=== PATIENT | female | born 1965 | race Hispanic/Latino ===

== ENCOUNTER 2016-11-20 18:21 | Inpatient (IN) | payer MEDICAID ==
[2016-11-20 20:20] LABS: Basophils % (Auto) 0.6 % (0.0-1.8); Eosinophils % (Auto) 1.2 % (0.0-4.3); Mean Corpuscular HGB Conc 31 % (30-34); Mean Corpuscular Hemoglobin 29 pg (28-32); Mean Corpuscular Volume 93 fl (79-97); Platelet Count 207 K/mm3 (140-440); Red Blood Count 5.59 M/mm3 (3.65-5.03); Red Cell Distribution Width 15.8 % (13.2-15.2); White Blood Count 10.9 K/mm3 (4.5-11.0)
[2016-11-20 20:24] LABS: Hematocrit 52.2 % (30.3-42.9); Hemoglobin 16.2 gm/dl (10.1-14.3)
[2016-11-20] MEDS ORDERED: ATROVENT IH ONE (20:28)
[2016-11-20] MEDS ORDERED: PROVENTIL IH ONE (20:28)
[2016-11-20] MEDS ORDERED: MAGNESIUM SULFATE 2GM/50ML 2 GM/50 ML BAG IV ONE (20:28)
[2016-11-20 20:42] LABS: Anion Gap 16 mmol/L; BUN/Creatinine Ratio 24.28; Blood Urea Nitrogen 17 mg/dL (7-17); Calcium 8.7 mg/dL (8.4-10.2); Carbon Dioxide 29 mmol/L (22-30); Chloride 99.7 mmol/L (98-107); Glucose 105 mg/dL (65-100); Potassium 4.8 mmol/L (3.6-5.0); Sodium 140 mmol/L (137-145)
--- NOTE | 2016-11-20 20:44 | Emergency Department Report ---
HPI - General Chief Complaint: Dyspnea/Respdistress Time Seen by Provider: 11/20/16 20:11 - HPI HPI: This is a 51-year-old female with the past medical history of COPD, hypertension, depression and morbid obesity who presents to the emergency department by EMS from her primary care doctor's office, Dr. Stone, with a complaint of shortness of breath. Patient says that the shortness of breath has been going on for the past 2 weeks. The patient says that she used to be on oxygen for her COPD but has not been on any for 6 months as she says she has not needed it. When EMS found her in the office she was found to have a oxygen saturation of 60-70%. She also complains of swelling to the bilateral lower extremities. She did not take anything for symptoms prior to presentation. She was placed on supplemental oxygen. Patient also complains of random joint pains and says that she thinks she is recently diagnosed with lupus. No recent travel or sick contacts at home. ED Past Medical Hx - Past Medical History Hx Hypertension: Yes Hx Congestive Heart Failure: No Hx Diabetes: No Hx Pulmonary Embolism: No Hx Renal Disease: No Hx Arthritis: Yes (LEFT KNEE) Hx Kidney Stones: No Hx Psychiatric Treatment: Yes (MAJOR DEPRESSIVE DISORDER) Hx Asthma: No Hx COPD: Yes Hx Tuberculosis: No Hx HIV: No Additional medical history: MORBID OBESITY - Surgical History Additional Surgical History: HYSTERECTOMY - Social History Smoking Status: Former Smoker - Medications Home Medications: Home Medications Medication Instructions Recorded Confirmed Last Taken Type Albuterol Sulfate [Ventolin HFA] 2 puff IH Q4H PRN #1 hfa.aer.ad 12/03/15 Unknown Rx Nystatin [Nystop Powder] 1 applic TP BID #7 powder 12/03/15 05/23/16 Unknown Rx Furosemide [Lasix TAB] 40 mg PO QDAY #7 tablet 12/10/15 05/23/16 Unknown Rx HYDROcodone/APAP 5-325 [[place] 1 each PO Q6HR PRN 05/23/16 05/23/16 Unknown History 5/325] Lurasidone HCl [Latuda] 40 mg PO QDAY 05/23/16 05/23/16 Unknown History Sulfamethoxazole/Trimethoprim 1 each PO BID 05/23/16 05/23/16 Unknown History [Bactrim DS TAB] Vilazodone Hydrochloride [Viibryd] 20 mg PO QDAY 05/23/16 05/23/16 Unknown History Prednisone [predniSONE 10 mg 10 mg PO .TAPER #1 tab.ds.pk 05/27/16 Unknown Rx (6-Day Pack, 21 Tabs)] Sulfamethoxazole/Trimethoprim 1 each PO BID #14 tablet 05/27/16 Unknown Rx [Bactrim DS TAB] ED Review of Systems ROS: Stated complaint: JAME Other details as noted in HPI Comment: All other systems reviewed and negative Constitutional: denies: chills, fever Eyes: denies: eye pain, eye discharge, vision change ENT: denies: ear pain, throat pain Respiratory: shortness of breath, wheezing Cardiovascular: edema. denies: chest pain Gastrointestinal: denies: abdominal pain, nausea, diarrhea Genitourinary: denies: urgency, dysuria, discharge Musculoskeletal: denies: back pain, joint swelling, arthralgia Skin: denies: rash, lesions Neurological: denies: headache, weakness, paresthesias Physical Exam - Physical Exam Vital Signs: Vital Signs 11/20/16 19:54 Temperature 98.7 F Pulse Rate 94 H Respiratory 20 Rate Blood Pressure 145/100 [Left] O2 Sat by Pulse 91 Oximetry Physical Exam: GENERAL: The patient is well-developed well-nourished. HEENT: Normocephalic. Atraumatic. Extraocular motions are intact. Patient has moist mucous membranes. Pupils equal reactive to light bilaterally. NECK: Supple. Trachea is midline. CHEST/LUNGS: Moderate to severe wheezing throughout the chest. There is a dry cough heard with coughing fits. There is some tachypnea. There is mild respiratory distress noted. HEART/CARDIOVASCULAR: Regular. There is no tachycardia. There is no gallop rub or murmur. ABDOMEN: Abdomen is soft, nontender. Patient has normal bowel sounds. There is no abdominal distention. Morbidly obese habitus. SKIN: Skin is warm and dry. Unable to appreciate lower extremity edema secondary to patient's habitus but there is no pitting. NEURO: The patient is awake, alert, and oriented. The patient is cooperative. The patient has no focal neurologic deficits. The patient has normal speech. MUSCULOSKELETAL: There is no tenderness or deformity. There is no limitation range of motion. There is no evidence of acute injury. ED Course Vital Signs 11/20/16 19:54 Temperature 98.7 F Pulse Rate 94 H Respiratory 20 Rate Blood Pressure 145/100 [Left] O2 Sat by Pulse 91 Oximetry - ABG Interpretation Ph: 7.248 PCO2: 81 PO2: 72 Bicarbonate: 35 Interpretation: respiratory acidosis, other (hypoxemia) ED Medical Decision Making - Lab Data Result diagrams: 11/20/16 20:05 11/20/16 20:05 - EKG Data EKG shows normal: sinus rhythm, axis (LAD), intervals, QRS complexes (left posterior fascicular block), ST-T waves Rate: normal - EKG Data When compared to previous EKG there are: no significant change Interpretation: unchanged when compared t (05/23/16) - Radiology Data Radiology results: report reviewed, image reviewed interpreted by me: Chest x-ray shows some mild cardiomegaly and some pulmonary vascular congestion. No obvious pneumonia. No pneumothorax. CT angiography of the chest does not show any obvious central pulmonary embolism or any other acute chest finding within the limits of this examination. The examination was listed as compromised by artifact related to suboptimal photon penetration and soft tissues extending beyond the field of view. - Medical Decision Making 51-year-old female with history of COPD, who is been noncompliant with her oxygen, presents to the ER after a two-week history of shortness of breath and some hypoxia in her primary care doctor's office. Patient appears to most likely have a COPD exacerbation but there also appears to be some level of CHF involvement. Patient's arterial blood gas shows hypercapnia as well as some hypoxemia. Patient had some mild respiration distress upon presentation but is doing better with supplemental oxygen and breathing treatments. Patient was given Solu-Medrol, magnesium, Lasix. Patient will now be placed on a BiPAP to blow off some of the carbon dioxide. Patient had a CT angiography due to a slightly elevated and equivocal d-dimer but it did not result in showing any central pulmonary embolism. Patient will be admitted to hospital for further evaluation and treatment is been accepted for admission by the hospitalist, Dr. Cain. - Differential Diagnosis COPD, CHF, GA, PE, pneumonia Critical Care Time: No Critical care attestation.: If time is entered above; I have spent that time in minutes in the direct care of this critically ill patient, excluding procedure time. ED Disposition Clinical Impression: HTN (hypertension), benign, Hypoxia, COPD exacerbation, Difficulty breathing, Hypercapnia, Respiratory acidosis Morbid obesity Qualifiers: Obesity type: unspecified obesity type Qualified Code(s): E66.01 - Morbid ( severe) obesity due to excess calories Disposition: OP ADMITTED IP TO THIS HOSP Is pt being admited?: Yes Condition: Stable Instructions: Hypertension (ED), Chronic Obstructive Pulmonary Disease (ED) Referrals: PRIMARY CARE,MD [Primary Care Provider] - 3-5 Days Time of Disposition: 23:45
[2016-11-20] MEDS ORDERED: ROBITUSSIN AC PO ONE (20:47)
[2016-11-20 21:27] LABS: ISTAT Base Excess 8; ISTAT HCO3 35.4; ISTAT PCO2 81.2 (35-45); ISTAT PH 7.248 (7.35-7.45); ISTAT PO2 72 (80-105); ISTAT SO2 90; ISTAT TCO2 38
--- NOTE | 2016-11-20 21:33 | Admit Criteria Form ---
Admission Criteria Documentation: RESPIRATORY FAILURE GRG Clinical Indications for Admission to Inpatient Care (Place 'X' for any and all applicable criteria): Hospital admission is needed for appropriate care of the patient because of acute respiratory failure or insufficiency as indicated by ANY ONE of the following(1)(2)(3)(4)(5)(6)(7)(8): [ ]I. Mechanical ventilation needed (acute invasive or noninvasive) [X ]II. Severe ventilation deficit as indicated by ANY ONE of the following (9 ) [X ]a) Respiratory acidosis (pH less than 7.32 and partial pressure of carbon dioxide greater than 40 mm Hg (5.3 kPa)) [ ]b) Partial pressure of carbon dioxide greater than 44 mm Hg (5.9 kPa ) (new) [ ]c) Airflow measurements less than 25% of predicted (eg, peak expiratory flow rate less than 100 L/minute) [ ]d) Forced vital capacity less than 15 mL/kg of ideal body weight, or 50% decrease in vital capacity from baseline [ ]III. Noncardiac pulmonary edema not resolving with rapid emergency treatment (8) [ ]IV. Severe respiratory distress as indicated by ANY ONE of the following: [ ]a) Severe tachypnea (respiratory rate greater than 30, greater than 45 for 6-month-old, greater than 60 for ) [ ]b) Severe hypoxemia (partial pressure of oxygen less than 50 mm Hg ( 6.7 kPa) on greater than 50% oxygen or partial pressure of oxygen to FIO2 ratio less than 200) [ ]c) Mental status deterioration from respiratory disease [ ]V. Airway obstruction or inadequate protection [A](10)(11) The original [employer] content created by [employer] has been revised. The portions of the content which have been revised are identified through the use of italic text or in bold, and [email or web address] has neither reviewed nor approved the modified material. All other unmodified content is copyright [employer]. Please see references footnoted in the original [employer] edition 2016 Admission Criteria Met: Yes
[2016-11-20] MEDS ORDERED: MORPHINE IV ONE (21:46)
--- NOTE | 2016-11-20 23:02 | Cat Scan Report ---
FINAL REPORT EXAM: CT ANGIO CHEST HISTORY: SOB, elevated dimer TECHNIQUE: CT imaging obtained through the chest following intravenous administration of 100 cc Omnipaque 350 contrast. Transaxial, Coronal and sagittal reformats are provided. PRIORS: None. FINDINGS: Examination is compromised by artifact related to suboptimal photon penetration and soft tissues extending beyond the field of view. Cardiomegaly. Main pulmonary artery is within normal limits in caliber. No central pulmonary embolism. Thoracic aorta is normal in course and caliber. No pneumothorax, effusion or focal airspace disease. The central airways are patent. No bronchiectasis. Imaged portion of the upper abdomen is unremarkable. The superficial soft tissues are unremarkable. Old fracture deformities in the right 4th and 5th in left 6th and 7th ribs. No acute bony abnormality or worrisome osseous lesions identified. IMPRESSION: Examination is compromised as above. No central pulmonary embolism or other acute chest finding within limits of the exam.
[2016-11-20] MEDS ORDERED: LASIX IV ONE (23:27)
[2016-11-21 00:31] LABS: ISTAT Base Excess 7; ISTAT HCO3 35.9; ISTAT PCO2 109.7 (35-45); ISTAT PH 7.123 (7.35-7.45); ISTAT PO2 57 (80-105); ISTAT SO2 76; ISTAT TCO2 39
[2016-11-21] MEDS ORDERED: ARTIFICIAL TEARS OPHTH OINT OU PRN ×2 (01:11→01:12)
[2016-11-21] MEDS ORDERED: ALUM-MAG HYDROX-SIMETH 200-200-20MG/5ML PO PRN (01:11)
[2016-11-21] MEDS ORDERED: TYLENOL PR PRN (01:11)
[2016-11-21] MEDS ORDERED: VASELINE LIP THERAPY TP PRN ×2 (01:11→01:12)
[2016-11-21] MEDS ORDERED: DULCOLAX PR PRN (01:11)
[2016-11-21] MEDS ORDERED: TYLENOL PO PRN (01:11)
[2016-11-21] MEDS ORDERED: ZOFRAN IV PRN (01:11)
[2016-11-21] MEDS ORDERED: MILK OF MAGNESIA PO PRN (01:11)
--- NOTE | 2016-11-21 01:27 | History and Physical Report ---
History of Present Illness Date of examination: 11/21/16 History of present illness: 51-year-old woman with a history of COPD, depression, anxiety came to the emergency room with shortness of breath. She was given diagnosis of COPD, given steroids and ABG shows a CO2 of 81. The patient was started on BiPAP. When I saw the patient she was minimally responsive, repeat ABG was requested which shows a CO2 of 110. Patient was then intubated. Other review of system is unobtainable PAST SURGICAL HISTORY: None SOCIAL HISTORY: Unknown FAMILY HISTORY: Unknown Medications and Allergies Allergies Allergy/AdvReac Type Severity Reaction Status Date / Time No Known Allergies Allergy Unverified 05/23/15 10:09 Home Medications Medication Instructions Recorded Confirmed Last Taken Type Albuterol Sulfate [Ventolin HFA] 2 puff IH Q4H PRN #1 hfa.aer.ad 12/03/15 Unknown Rx Nystatin [Nystop Powder] 1 applic TP BID #7 powder 12/03/15 05/23/16 Unknown Rx Furosemide [Lasix TAB] 40 mg PO QDAY #7 tablet 12/10/15 05/23/16 Unknown Rx HYDROcodone/APAP 5-325 [[place] 1 each PO Q6HR PRN 05/23/16 05/23/16 Unknown History 5/325] Lurasidone HCl [Latuda] 40 mg PO QDAY 05/23/16 05/23/16 Unknown History Sulfamethoxazole/Trimethoprim 1 each PO BID 05/23/16 05/23/16 Unknown History [Bactrim DS TAB] Vilazodone Hydrochloride [Viibryd] 20 mg PO QDAY 05/23/16 05/23/16 Unknown History Prednisone [predniSONE 10 mg 10 mg PO .TAPER #1 tab.ds.pk 05/27/16 Unknown Rx (6-Day Pack, 21 Tabs)] Sulfamethoxazole/Trimethoprim 1 each PO BID #14 tablet 05/27/16 Unknown Rx [Bactrim DS TAB] Active Meds: Active Medications Hydrophilic Ointment (Vaseline Lip Therapy) 1 applic TP Q2HR PRN PRN Reason: Dry Lips Propofol (Diprivan 10 Mg/Ml) 1,000 mg in 100 mls @ 4.763 mls/hr IV TITR DOMITILA; 5 MCG/KG/MIN PRN Reason: Protocol Multi-Ingred Cream/Lotion/Oil/Oint (Artificial Tears Ophth Oint) 1 applic OU Q4HR PRN PRN Reason: Dry Eye(s) Exam - Physical Exam Narrative exam: Gen. appearance: Patient lying in bed, no apparent distress HEENT: Normocephalic, atraumatic, pupils equally round and reactive to light, extraocular movement intact, and no sclericterus,. No JVD or thyromegaly or nodule,neck supple, no carotid bruit ,mucous membranes moist, no exudate or erythema Heart: S1, S2, regular rate and rhythm Lungs: wheezing bilaterally, breathing comfortable Abdomen: Positive bowel sounds, nontender, nondistended, no organomegaly Extremity: No edema, cyanosis, clubbing Skin: No rash, nodules, warm, dry Neuro:lethargic - Constitutional Vitals: Temp Pulse Resp BP Pulse Ox 98.7 F 106 H 0 L 167/109 99 11/20/16 19:54 11/21/16 00:50 11/21/16 00:50 11/21/16 00:50 11/21/16 00:50 Results - Labs CBC & Chem 7: 11/20/16 20:05 11/20/16 20:05 Labs: Abnormal lab results 11/20/16 11/20/16 11/20/16 Range/Units 20:05 20:05 20:05 RBC 5.59 H (3.65-5.03) M/mm3 Hgb 16.2 H (10.1-14.3) gm/dl Hct 52.2 H (30.3-42.9) % RDW 15.8 H (13.2-15.2) % [place] % (Auto) 12.7 H (0.0-7.3) % [place] # 1.4 H (0.0-0.8) K/mm3 Seg Neutrophils % 72.1 H (40.0-70.0) % Seg Neutrophils # 7.9 H (1.8-7.7) K/mm3 D-Dimer (0-234) ng/mlDDU POC ABG pH (7.35-7.45) POC ABG pCO2 (35-45) POC ABG pO2 (80-105) Glucose 105 H (65-100) mg/dL NT-Pro-B Natriuret Pep 1872 H (0-900) pg/mL 11/20/16 11/20/16 11/21/16 Range/Units 21:00 21:19 00:19 RBC (3.65-5.03) M/mm3 Hgb (10.1-14.3) gm/dl Hct (30.3-42.9) % RDW (13.2-15.2) % [place] % (Auto) (0.0-7.3) % [place] # (0.0-0.8) K/mm3 Seg Neutrophils % (40.0-70.0) % Seg Neutrophils # (1.8-7.7) K/mm3 D-Dimer 390.70 H (0-234) ng/mlDDU POC ABG pH 7.248 L 7.123 L (7.35-7.45) POC ABG pCO2 81.2 H 109.7 H (35-45) POC ABG pO2 72 L 57 L (80-105) Glucose (65-100) mg/dL NT-Pro-B Natriuret Pep (0-900) pg/mL - Imaging and Cardiology EKG: image reviewed Chest x-ray: image reviewed CT scan - chest: report reviewed Assessment and Plan Acute respiratory failure COPD exacerbation Depression Anxiety Admit to medicine start Versed drip for sedation Consult critical care, start high-dose IV steroids, nebulizer treatments Check cardiac enzymes, DVT prophylaxis
[2016-11-21] MEDS: DIPRIVAN 10 MG/ML 1,000 MG/100 ML BOTTLE IV SCH ×4 (01:40→22:57)
[2016-11-21] MEDS ORDERED: NACL 0.9% 500 ML IV SCH (02:00)
[2016-11-21] MEDS ORDERED: VERSED/NS 100MG/100ML 100 MG/100 ML BAG IV SCH (02:00)
--- NOTE | 2016-11-21 02:27 | XRay Report ---
FINAL REPORT PROCEDURE: XR CHEST 1V AP TECHNIQUE: Chest radiograph anteroposterior view. CPT 37621 HISTORY: post-intubation COMPARISON: No prior studies are available for comparison. FINDINGS: Heart: Heart is enlarged Mediastinum/Vessels: There is pulmonary vascular congestion.. Lungs/Pleural space: There is suboptimal inspiration. There is bilateral pulmonary edema.. Bony thorax: No acute osseous abnormality. Life support devices: ET tube is in the mid trachea. Tip of the NG tube cannot be seen.. IMPRESSION: Heart is enlarged There is pulmonary vascular congestion.. There is suboptimal inspiration. There is bilateral pulmonary edema.. ET tube is in the mid trachea. Tip of the NG tube cannot be seen. .
[2016-11-21] MEDS: DUONEB 0.5 MG-3 MG/3 ML SOLN IH SCH ×4 (03:00→21:17)
[2016-11-21 03:04] LABS: ISTAT Base Excess 6; ISTAT HCO3 32.4; ISTAT PCO2 67.4 (35-45); ISTAT PO2 67 (80-105); ISTAT SO2 90; ISTAT TCO2 34
[2016-11-21] MEDS ORDERED: AMIDATE IV ONE (08:47)
[2016-11-21] MEDS ORDERED: VERSED IV ONE (08:47)
[2016-11-21] MEDS ORDERED: ZEMURON IV ONE (08:47)
--- NOTE | 2016-11-21 09:05 | XRay Report ---
CHEST 2 VIEWS INDICATION: Shortness of breath. COMPARISON: 05/23/2016 FINDINGS: Frontal and lateral chest radiographs, 3 images, technically limited due to patient's body habitus, though may again suggest mild cardiomegaly. Asymmetric right lung hazy air space opacities appear to have cleared. Mild pulmonary vascular redistribution/bronchovascular prominence centrally may though be present. Pulmonary arterial hypertension not entirely excluded. No large pleural effusion suspected. Left hemidiaphragm however not clearly visualized. Mild thoracic spondylosis. CONCLUSION: Mild cardiomegaly again suspected on this technically limited exam with interval improvement in previously seen asymmetric right lung hazy air space opacities, as described. Please correlate. Thank you for the opportunity to participate in this patient's care.
[2016-11-21 09:38] LABS: Creatine Kinase MB 6.6 ng/mL (0.0-4.0)
[2016-11-21 09:40] LABS: Creatine Kinase 523 units/L (30-135)
[2016-11-21] MEDS: PEPCID IV SCH ×2 (11:00→22:59)
[2016-11-21] MEDS: LOVENOX SUB-Q SCH (11:00)
[2016-11-21] MEDS ORDERED: LASIX IV ONE (11:00)
--- NOTE | 2016-11-21 11:25 | Consultation ---
History of Present Illness Consult date: 11/21/16 Requesting physician: RICARDO NICOLE Reason for consult: COPD, other (hypercapnic respiratory failure) History of present illness: 51 y/o female, morbidly obese, admitted with hypercapnic respiratory failure that failed bipap therapy and required mechanical ventilation and intubation. Currently she is intubated and sedated and has no family at bedside. Past History Past Medical History: other (unable to obtaine) Past Surgical History: Other (unable to obtain) Social history: other (unable to obtain) Family history: other (unable to obtain) Medications and Allergies Allergies Allergy/AdvReac Type Severity Reaction Status Date / Time No Known Allergies Allergy Unverified 05/23/15 10:09 Home Medications Medication Instructions Recorded Confirmed Last Taken Type Albuterol Sulfate [Ventolin HFA] 2 puff IH Q4H PRN #1 hfa.aer.ad 12/03/15 Unknown Rx Nystatin [Nystop Powder] 1 applic TP BID #7 powder 12/03/15 05/23/16 Unknown Rx Furosemide [Lasix TAB] 40 mg PO QDAY #7 tablet 12/10/15 05/23/16 Unknown Rx HYDROcodone/APAP 5-325 [[place] 1 each PO Q6HR PRN 05/23/16 05/23/16 Unknown History 5/325] Lurasidone HCl [Latuda] 40 mg PO QDAY 05/23/16 05/23/16 Unknown History Sulfamethoxazole/Trimethoprim 1 each PO BID 05/23/16 05/23/16 Unknown History [Bactrim DS TAB] Vilazodone Hydrochloride [Viibryd] 20 mg PO QDAY 05/23/16 05/23/16 Unknown History Prednisone [predniSONE 10 mg 10 mg PO .TAPER #1 tab.ds.pk 05/27/16 Unknown Rx (6-Day Pack, 21 Tabs)] Sulfamethoxazole/Trimethoprim 1 each PO BID #14 tablet 05/27/16 Unknown Rx [Bactrim DS TAB] Active Meds: Active Medications Acetaminophen (Tylenol) 650 mg ID Q6H PRN PRN Reason: Pain MILD(1-3)/Fever >100.5/BONE Acetaminophen (Tylenol) 650 mg PO Q6H PRN PRN Reason: Pain Al Hydrox/Mg Hydrox/Simethicone (Alum-Mag Hydrox-Simeth 214-212-60xx/5ml) 30 ml PO Q4H PRN PRN Reason: Indigestion Albuterol/Ipratropium (Duoneb 0.5 Mg-3 Mg/3 Ml Soln) 1 ampul IH Q6HRT [facility] Last Admin: 11/21/16 03:00 Dose: 1 ampul Bisacodyl (Dulcolax) 10 mg ID QDAY PRN PRN Reason: constipation unrelieved by MOM Enoxaparin Sodium (Lovenox) 40 mg SUB-Q QDAY DOMITILA Famotidine (Pepcid) 20 mg IV BID DOMITILA Fentanyl (Sublimaze) 50 mcg IV Q2H PRN PRN Reason: AGITATION Hydrophilic Ointment (Vaseline Lip Therapy) 1 applic TP Q2HR PRN PRN Reason: Dry Lips Propofol (Diprivan 10 Mg/Ml) 1,000 mg in 100 mls @ 4.763 mls/hr IV TITR DOMITILA; 5 MCG/KG/MIN PRN Reason: Protocol Last Titration: 11/21/16 02:10 Dose: 15 mcg/kg/min, 14.288 mls/hr Magnesium Hydroxide (Milk Of Magnesia) 30 ml PO Q4H PRN PRN Reason: Constipation Methylprednisolone Sodium Succinate (Solu-Medrol) 60 mg IV Q6HR [facility] Multi-Ingred Cream/Lotion/Oil/Oint (Artificial Tears Ophth Oint) 1 applic OU Q4H PRN PRN Reason: Dry Eye(s) Ondansetron HCl (Zofran) 4 mg IV Q8H PRN PRN Reason: N/V unrelieved by Reglan Sodium Chloride (Nacl 0.9% 500 Ml) 1 ml IV DIRECT DOMITILA Review of Systems ROS unobtainable: due to endotracheal tube, due to mental status Physical Examination Vital signs: Vital Signs Temp Pulse Resp BP Pulse Ox 98.7 F 94 H 20 145/100 91 11/20/16 19:54 11/20/16 19:54 11/20/16 19:54 11/20/16 19:54 11/20/16 19:54 General appearance: comatose, other (morbidly obese) ENT: other (orally intubated) Neck: supple, other (large in circumference) Effort: normal Ascultation: Bilateral: wheezes Percussion: Bilateral: not dull Cardiovascular: regular rate and rhythm Gastrointestinal: normoactive bowel sounds Extremities: no edema unable to assess Results - Laboratory Findings CBC and BMP: 11/20/16 20:05 11/20/16 20:05 ABG POC ABG pH 7.290 (7.35-7.45) L 11/21/16 02:41 POC ABG pCO2 67.4 (35-45) H 11/21/16 02:41 POC ABG pO2 67 (80-105) L 11/21/16 02:41 POC ABG HCO3 32.4 11/21/16 02:41 POC ABG Total CO2 34 11/21/16 02:41 POC ABG O2 Sat 90 11/21/16 02:41 PT/INR, D-dimer D-Dimer 390.70 ng/mlDDU (0-234) H 11/20/16 21:00 Abnormal lab findings: Abnormal Labs 11/21/16 11/21/16 02:41 09:00 POC ABG pH 7.290 L POC ABG pCO2 67.4 H POC ABG pO2 67 L Total Creatine Kinase 523 H CK-MB (CK-2) 6.6 H - Diagnostic Findings Chest x-ray: image reviewed (pulmonary edema and cardiomegaly) Assessment and Plan 51 y/o female with known COPD, BRENDA, and noncompliance, admitted with acute on chronic hypercapnic respiratory failure. 1. Repeat ABG at noon 2. Change steroids to 60q6 3. Lasix 40mg IV x1 now given elevated BNP and CXR 4. Pulmicort and brovana BID 5. Will feed patient 6. Wean PEEP for sats >88% and or PaO2 greater than 60 CCT 31 minutes
[2016-11-21] MEDS: SUBLIMAZE IV PRN ×2 (12:00→14:45)
[2016-11-21 13:19] LABS: ISTAT Base Excess 9; ISTAT HCO3 33.8; ISTAT PCO2 57.5 (35-45); ISTAT PH 7.377 (7.35-7.45); ISTAT PO2 62 (80-105); ISTAT SO2 90; ISTAT TCO2 35
[2016-11-21] MEDS: PULMICORT IH SCH ×2 (13:30→21:17)
[2016-11-21] MEDS: BROVANA NEBU IH SCH ×2 (14:13→21:17)
[2016-11-21] MEDS ORDERED: SUBLIMAZE IV ONE (14:20)
[2016-11-21] MEDS ORDERED: PANCREAZE DR 10,500 UNIT FEEDTUBE PRN (14:35)
[2016-11-21] MEDS ORDERED: SIMPLE SYRUP FEEDTUBE PRN ×2 (14:35)
[2016-11-21] MEDS ORDERED: SODIUM BICARBONATE FEEDTUBE PRN (14:35)
[2016-11-21] MEDS: fentaNYL DRIP Premix 2,000 MCG/100 ML BAG IV SCH ×2 (15:00→18:14)
[2016-11-22] MEDS: fentaNYL DRIP Premix 2,000 MCG/100 ML BAG IV SCH ×4 (00:09→19:01)
[2016-11-22] MEDS: DUONEB 0.5 MG-3 MG/3 ML SOLN IH SCH ×4 (03:47→21:19)
[2016-11-22] MEDS: DIPRIVAN 10 MG/ML 1,000 MG/100 ML BOTTLE IV SCH ×5 (04:00→21:01)
[2016-11-22 05:29] LABS: Hemoglobin 15.4 gm/dl (10.1-14.3); Mean Corpuscular HGB Conc 32 % (30-34); Mean Corpuscular Hemoglobin 29 pg (28-32); Mean Corpuscular Volume 91 fl (79-97); Platelet Count 209 K/mm3 (140-440); Red Blood Count 5.28 M/mm3 (3.65-5.03); Red Cell Distribution Width 14.9 % (13.2-15.2); White Blood Count 13.8 K/mm3 (4.5-11.0)
[2016-11-22 05:40] LABS: Blood Urea Nitrogen 19 mg/dL (7-17); Calcium 8.2 mg/dL (8.4-10.2); Carbon Dioxide 30 mmol/L (22-30); Chloride 96.9 mmol/L (98-107); Glucose 151 mg/dL (65-100); Sodium 139 mmol/L (137-145)
[2016-11-22 06:04] LABS: ISTAT Base Excess 12; ISTAT HCO3 36.8; ISTAT PCO2 55.7 (35-45); ISTAT PH 7.428 (7.35-7.45); ISTAT PO2 65 (80-105); ISTAT SO2 92; ISTAT TCO2 38
[2016-11-22 06:06] LABS: Anion Gap 17 mmol/L; Potassium 4.7 mmol/L (3.6-5.0)
[2016-11-22 06:31] LABS: Anisocytosis 1+; Basophils % (Manual) 0 % (0.0-1.8); Blastocytes % (Manual) 0 %; Diff Status Complete; Eosinophils % (Manual) 0 % (0.0-4.3); Platelet Estimate Consistent w Auto
--- NOTE | 2016-11-22 09:19 | XRay Report ---
Portable supine chest: Comparison is made to the prior study of November 21. The heart is big. There is still vascular congestion however the overall findings do appear mildly improved. Endotracheal and nasogastric tubes remain in good positions. Impression: CHF. Probable mild improvement.
[2016-11-22] MEDS: BROVANA NEBU IH SCH ×2 (09:26→21:08)
[2016-11-22] MEDS: PULMICORT IH SCH ×2 (09:26→21:08)
--- NOTE | 2016-11-22 10:41 | XRay Report ---
KUB: 11/22/16 CLINICAL: Feeding tube placement. FINDINGS: A nasogastric tube tip is in the left upper quadrant and is presumably within the stomach. The bowel gas pattern is normal considering body habitus and the portable technique. IMPRESSION: Satisfactory position of the nasogastric tube.
[2016-11-22] MEDS: LOVENOX SUB-Q SCH (11:00)
[2016-11-22] MEDS ORDERED: LASIX IV ONE (13:00)
--- NOTE | 2016-11-22 14:25 | Progress Note ---
Assessment and Plan 51 y/o female with known COPD, BRENDA, and noncompliance, admitted with acute on chronic hypercapnic respiratory failure. 1. Continue steroids at 60q6 2. Lasix 40mg IV x1 now given elevated BNP and CXR 3. Pulmicort and brovana BID 4. Will feed patient 5. Wean PEEP for sats >88% and or PaO2 greater than 60, still not ready for extubation as of yet CCT 31 minutes Subjective Date of service: 11/22/16 Interval history: No acute events. Sedated now on two agents. Awakens with minimal stimulation. Still hypoxic and has significant edema Objective Vital Signs - 12hr 11/22/16 11/22/16 11/22/16 02:30 03:00 03:30 Temperature Pulse Rate 68 66 67 Pulse Rate [ From Monitor] Pulse Rate [ 65 Throughout] Respiratory 26 H 26 H 26 H Rate Respiratory 26 H Rate [ Throughout] Blood Pressure 126/73 113/62 113/62 O2 Sat by Pulse 93 90 91 Oximetry 11/22/16 11/22/16 11/22/16 04:00 04:30 05:00 Temperature 99.1 F Pulse Rate 61 67 63 Pulse Rate [ 61 From Monitor] Pulse Rate [ 63 Throughout] Respiratory 26 H 26 H 26 H Rate Respiratory 26 H Rate [ Throughout] Blood Pressure 111/63 111/63 112/55 O2 Sat by Pulse 95 91 92 Oximetry 11/22/16 11/22/16 11/22/16 05:30 06:00 06:30 Temperature Pulse Rate 65 64 62 Pulse Rate [ From Monitor] Pulse Rate [ Throughout] Respiratory 26 H 26 H 26 H Rate Respiratory Rate [ Throughout] Blood Pressure 112/55 115/64 115/64 O2 Sat by Pulse 95 95 95 Oximetry 11/22/16 11/22/16 11/22/16 07:00 07:30 08:00 Temperature 98.3 F Pulse Rate 60 61 68 Pulse Rate [ 75 From Monitor] Pulse Rate [ Throughout] Respiratory 26 H 26 H 26 H Rate Respiratory Rate [ Throughout] Blood Pressure 113/61 115/64 120/72 O2 Sat by Pulse 94 95 92 Oximetry 11/22/16 11/22/16 11/22/16 08:30 09:00 09:22 Temperature Pulse Rate 88 72 66 Pulse Rate [ From Monitor] Pulse Rate [ Throughout] Respiratory 26 H 26 H Rate Respiratory Rate [ Throughout] Blood Pressure 120/72 128/76 128/76 O2 Sat by Pulse 94 Oximetry 11/22/16 11/22/16 11/22/16 09:26 09:39 12:47 Temperature Pulse Rate 68 Pulse Rate [ From Monitor] Pulse Rate [ 65 62 Throughout] Respiratory Rate Respiratory 26 H 26 H Rate [ Throughout] Blood Pressure 126/73 O2 Sat by Pulse 94 Oximetry Constitutional: comatose, other (morbidly obese) ENT: other (orally intubated) Neck: supple, other (large in circumference) Effort: normal Ascultation: Bilateral: wheezes Percussion: Bilateral: not dull Cardiovascular: regular rate and rhythm Gastrointestinal: normoactive bowel sounds Extremities: no edema Neurologic: unable to assess CBC and BMP: 11/22/16 05:08 11/22/16 05:08 ABG, PT/INR, D-dimer: ABG POC ABG pH 7.428 (7.35-7.45) 11/22/16 05:18 POC ABG pCO2 55.7 (35-45) H 11/22/16 05:18 POC ABG pO2 65 (80-105) L 11/22/16 05:18 POC ABG HCO3 36.8 11/22/16 05:18 POC ABG Total CO2 38 11/22/16 05:18 POC ABG O2 Sat 92 11/22/16 05:18 PT/INR, D-dimer D-Dimer 390.70 ng/mlDDU (0-234) H 11/20/16 21:00 Abnormal lab findings: Abnormal Labs 11/21/16 11/21/16 11/21/16 02:41 09:00 13:10 WBC RBC Hgb Hct Seg Neuts % (Manual) Lymphocytes % (Manual) Seg Neutrophils # Man Lymphocytes # (Manual) Monocytes # (Manual) POC ABG pH 7.290 L POC ABG pCO2 67.4 H 57.5 H POC ABG pO2 67 L 62 L Chloride BUN Creatinine Glucose Calcium Total Creatine Kinase 523 H CK-MB (CK-2) 6.6 H 11/22/16 11/22/16 11/22/16 05:08 05:08 05:18 WBC 13.8 H RBC 5.28 H Hgb 15.4 H Hct 48.0 H Seg Neuts % (Manual) 75.0 H Lymphocytes % (Manual) 4.0 L Seg Neutrophils # Man 10.4 H Lymphocytes # (Manual) 0.6 L Monocytes # (Manual) 1.0 H POC ABG pH POC ABG pCO2 55.7 H POC ABG pO2 65 L Chloride 96.9 L BUN 19 H Creatinine 0.5 L Glucose 151 H Calcium 8.2 L Total Creatine Kinase CK-MB (CK-2)
--- NOTE | 2016-11-22 19:02 | Progress Note ---
Assessment and Plan Assessment and plan: 1. Acute hypoxic hypercapnic respiratory failure Intubated Treating underlying condition 2. COPD exacerbation Requiring intubation On IV corticosteroids high dose, along with inhaled bronchodilators Pulmonary following 3. Morbid obesity and likely BRENDA/OHS May benefit from weight loss and pulmonary follow-up for sleep study/NIPPV 4. Leukocytosis Secondary to corticosteroid use 5. Hyperglycemia Secondary to corticosteroid use 6. DVT prophylaxis The high probability of a clinically significant, sudden or life threatening deterioration of the [] system(s) required my full and direct attention, intervention and personal management. The aggregate critical care time was [32] minutes. This time is in addition to time spent performing reported procedures but includes the following: [x] Data Review and interpretation [x] Patient assessment and monitoring of vital signs [x] Documentation [x] Medication orders and management History Interval history: sedated, intubated, no acute events no family member present Hospitalist Physical - Constitutional Vitals: Temp Pulse Resp BP Pulse Ox 98.3 F 61 26 H 106/56 94 11/22/16 16:00 11/22/16 18:30 11/22/16 18:30 11/22/16 18:30 11/22/16 18:30 General appearance: Present: mild distress, obese (morbidly) - Neck Neck: Present: other (large, short neck). Absent: masses or JVD, carotid bruits - Respiratory Respiratory effort: other (ETT in place, on vent support) Respiratory: bilateral: diminished, wheezing - Cardiovascular Rhythm: regular Heart Sounds: Present: S1 & S2. Absent: systolic murmur - Extremities Extremities: no ischemia Extremity abnormal: edema - Abdominal General gastrointestinal: soft, non-tender, normal bowel sounds, other (abd obese, ptotuberant) - Psychiatric Psychiatric: other (sedated) Results - Labs CBC & Chem 7: 11/22/16 05:08 11/22/16 05:08 Labs: Laboratory Last Values WBC 13.8 K/mm3 (4.5-11.0) H 11/22/16 05:08 RBC 5.28 M/mm3 (3.65-5.03) H 11/22/16 05:08 Hgb 15.4 gm/dl (10.1-14.3) H 11/22/16 05:08 Hct 48.0 % (30.3-42.9) H 11/22/16 05:08 MCV 91 fl (79-97) 11/22/16 05:08 MCH 29 pg (28-32) 11/22/16 05:08 MCHC 32 % (30-34) 11/22/16 05:08 RDW 14.9 % (13.2-15.2) 11/22/16 05:08 Plt Count 209 K/mm3 (140-440) 11/22/16 05:08 Lymph % (Auto) 13.4 % (13.4-35.0) 11/20/16 20:05 [place] % (Auto) 12.7 % (0.0-7.3) H 11/20/16 20:05 Eos % (Auto) 1.2 % (0.0-4.3) 11/20/16 20:05 Baso % (Auto) 0.6 % (0.0-1.8) 11/20/16 20:05 Lymph # 1.5 K/mm3 (1.2-5.4) 11/20/16 20:05 [place] # 1.4 K/mm3 (0.0-0.8) H 11/20/16 20:05 Eos # 0.1 K/mm3 (0.0-0.4) 11/20/16 20:05 Baso # 0.1 K/mm3 (0.0-0.1) 11/20/16 20:05 Add Manual Diff Complete 11/22/16 05:08 Total Counted 100 11/22/16 05:08 Seg Neutrophils % 72.1 % (40.0-70.0) H 11/20/16 20:05 Seg Neuts % (Manual) 75.0 % (40.0-70.0) H 11/22/16 05:08 Band Neutrophils % 14.0 % 11/22/16 05:08 Lymphocytes % (Manual) 4.0 % (13.4-35.0) L 11/22/16 05:08 Reactive Lymphs % (Man) 0 % 11/22/16 05:08 Monocytes % (Manual) 7.0 % (0.0-7.3) 11/22/16 05:08 Eosinophils % (Manual) 0 % (0.0-4.3) 11/22/16 05:08 Basophils % (Manual) 0 % (0.0-1.8) 11/22/16 05:08 Metamyelocytes % 0 % 11/22/16 05:08 Myelocytes % 0 % 11/22/16 05:08 Promyelocytes % 0 % 11/22/16 05:08 Blast Cells % 0 % 11/22/16 05:08 Nucleated RBC % Not Reportable 11/22/16 05:08 Seg Neutrophils # 7.9 K/mm3 (1.8-7.7) H 11/20/16 20:05 Seg Neutrophils # Man 10.4 K/mm3 (1.8-7.7) H 11/22/16 05:08 Band Neutrophils # 1.9 K/mm3 11/22/16 05:08 Lymphocytes # (Manual) 0.6 K/mm3 (1.2-5.4) L 11/22/16 05:08 Abs React Lymphs (Man) 0.0 K/mm3 11/22/16 05:08 Monocytes # (Manual) 1.0 K/mm3 (0.0-0.8) H 11/22/16 05:08 Eosinophils # (Manual) 0.0 K/mm3 (0.0-0.4) 11/22/16 05:08 Basophils # (Manual) 0.0 K/mm3 (0.0-0.1) 11/22/16 05:08 Metamyelocytes # 0.0 K/mm3 11/22/16 05:08 Myelocytes # 0.0 K/mm3 11/22/16 05:08 Promyelocytes # 0.0 K/mm3 11/22/16 05:08 Blast Cells # 0.0 K/mm3 11/22/16 05:08 WBC Morphology Not Reportable 11/22/16 05:08 Hypersegmented Neuts Not Reportable 11/22/16 05:08 Hyposegmented Neuts Not Reportable 11/22/16 05:08 Hypogranular Neuts Not Reportable 11/22/16 05:08 Smudge Cells Not Reportable 11/22/16 05:08 Toxic Granulation Not Reportable 11/22/16 05:08 Toxic Vacuolation Not Reportable 11/22/16 05:08 Dohle Bodies Not Reportable 11/22/16 05:08 Pelger-Huet Anomaly Not Reportable 11/22/16 05:08 Abigail Rods Not Reportable 11/22/16 05:08 Platelet Estimate Consistent w auto 11/22/16 05:08 Clumped Platelets Not Reportable 11/22/16 05:08 Plt Clumps, EDTA Not Reportable 11/22/16 05:08 Large Platelets Not Reportable 11/22/16 05:08 Giant Platelets Not Reportable 11/22/16 05:08 Platelet Satelliting Not Reportable 11/22/16 05:08 Plt Morphology Comment Not Reportable 11/22/16 05:08 RBC Morphology Not Reportable 11/22/16 05:08 Dimorphic RBCs Not Reportable 11/22/16 05:08 Polychromasia Not Reportable 11/22/16 05:08 Hypochromasia Not Reportable 11/22/16 05:08 Poikilocytosis Not Reportable 11/22/16 05:08 Anisocytosis 1+ 11/22/16 05:08 Microcytosis Not Reportable 11/22/16 05:08 Macrocytosis Not Reportable 11/22/16 05:08 Spherocytes Not Reportable 11/22/16 05:08 Pappenheimer Bodies Not Reportable 11/22/16 05:08 Sickle Cells Not Reportable 11/22/16 05:08 Target Cells Not Reportable 11/22/16 05:08 Tear Drop Cells Not Reportable 11/22/16 05:08 Ovalocytes Not Reportable 11/22/16 05:08 Helmet Cells Not Reportable 11/22/16 05:08 [place] Bodies Not Reportable 11/22/16 05:08 [place] Rings Not Reportable 11/22/16 05:08 Rey Cells Not Reportable 11/22/16 05:08 Bite Cells Not Reportable 11/22/16 05:08 Crenated Cell Not Reportable 11/22/16 05:08 Elliptocytes Not Reportable 11/22/16 05:08 Acanthocytes (Spur) Not Reportable 11/22/16 05:08 Rouleaux Not Reportable 11/22/16 05:08 Hemoglobin C Crystals Not Reportable 11/22/16 05:08 Schistocytes Not Reportable 11/22/16 05:08 Malaria parasites Not Reportable 11/22/16 05:08 [place] Bodies Not Reportable 11/22/16 05:08 Hem Pathologist Commnt No 11/22/16 05:08 D-Dimer 390.70 ng/mlDDU (0-234) H 11/20/16 21:00 POC ABG pH 7.428 (7.35-7.45) 11/22/16 05:18 POC ABG pCO2 55.7 (35-45) H 11/22/16 05:18 POC ABG pO2 65 (80-105) L 11/22/16 05:18 POC ABG HCO3 36.8 11/22/16 05:18 POC ABG Total CO2 38 11/22/16 05:18 POC ABG O2 Sat 92 11/22/16 05:18 POC ABG Base Excess 12 11/22/16 05:18 FiO2 45 % 11/22/16 05:18 Sodium 139 mmol/L (137-145) 11/22/16 05:08 Potassium 4.7 mmol/L (3.6-5.0) 11/22/16 05:08 Chloride 96.9 mmol/L (98-107) L 11/22/16 05:08 Carbon Dioxide 30 mmol/L (22-30) 11/22/16 05:08 Anion Gap 17 mmol/L 11/22/16 05:08 BUN 19 mg/dL (7-17) H 11/22/16 05:08 Creatinine 0.5 mg/dL (0.7-1.2) L 11/22/16 05:08 Estimated GFR > 60 ml/min 11/22/16 05:08 BUN/Creatinine Ratio 38.00 % 11/22/16 05:08 Glucose 151 mg/dL (65-100) H 11/22/16 05:08 Calcium 8.2 mg/dL (8.4-10.2) L 11/22/16 05:08 Magnesium 2.2 mg/dL (1.7-2.3) 11/20/16 20:05 Total Creatine Kinase 523 units/L (30-135) H 11/21/16 09:00 CK-MB (CK-2) 6.6 ng/mL (0.0-4.0) H 11/21/16 09:00 CK-MB (CK-2) Rel Index 1.2 (0-4) 11/21/16 09:00 Troponin T < 0.010 ng/mL (0.00-0.029) 11/21/16 09:00 NT-Pro-B Natriuret Pep 1872 pg/mL (0-900) H 11/20/16 20:05
[2016-11-22] MEDS: PEPCID PO SCH (21:03)
[2016-11-23] MEDS: DIPRIVAN 10 MG/ML 1,000 MG/100 ML BOTTLE IV SCH ×4 (00:25→20:59)
[2016-11-23] MEDS: fentaNYL DRIP Premix 2,000 MCG/100 ML BAG IV SCH ×4 (00:26→22:00)
[2016-11-23] MEDS: DUONEB 0.5 MG-3 MG/3 ML SOLN IH SCH ×4 (02:24→20:01)
[2016-11-23 05:23] LABS: ISTAT Base Excess 13; ISTAT HCO3 36.7; ISTAT PCO2 49.9 (35-45); ISTAT PH 7.475 (7.35-7.45); ISTAT PO2 72 (80-105); ISTAT SO2 95; ISTAT TCO2 38
--- NOTE | 2016-11-23 07:21 | XRay Report ---
AP CHEST: HISTORY: Followup respiratory failure Cardiomegaly, pulmonary venous congestion and small left pleural effusion are stable. Segmental atelectasis is noted in the left lung. The right lung is generally clear. Lines and tubes remain in good position. IMPRESSION: No significant change in CHF since yesterday's exam.
[2016-11-23] MEDS: BROVANA NEBU IH SCH ×2 (08:25→20:19)
[2016-11-23] MEDS: PULMICORT IH SCH ×2 (08:25→20:01)
[2016-11-23] MEDS: PEPCID PO SCH ×2 (10:00→22:36)
[2016-11-23] MEDS: LOVENOX SUB-Q SCH (11:00)
[2016-11-23] MEDS ORDERED: LASIX IV ONE (12:00)
--- NOTE | 2016-11-23 12:22 | Progress Note ---
Assessment and Plan 51 y/o female with known COPD, BRENDA, and noncompliance, admitted with acute on chronic hypercapnic respiratory failure. 1. Continue steroids at 60q6 2. Lasix 40mg IV x1 now given elevated BNP and CXR, again today as really no improvement in CXR 3. Pulmicort and brovana BID 4. Tolerating feeds 5. Wean PEEP for sats >88% and or PaO2 greater than 60, still not ready for extubation as of yet CCT 31 minutes Subjective Date of service: 11/23/16 Interval history: No acute events. Remains on high levels of peep but FiO2 is improving. ABG is better Objective Vital Signs - 12hr 11/23/16 11/23/16 11/23/16 00:23 00:30 01:00 Temperature Pulse Rate 62 55 L 61 Pulse Rate [ From Monitor] Pulse Rate [ Throughout] Respiratory 26 H 26 H Rate Respiratory Rate [ Throughout] Blood Pressure 120/67 120/67 O2 Sat by Pulse 93 91 93 Oximetry 11/23/16 11/23/16 11/23/16 01:30 02:00 02:25 Temperature Pulse Rate 55 L 57 L Pulse Rate [ From Monitor] Pulse Rate [ 55 L Throughout] Respiratory 26 H 26 H Rate Respiratory 26 H Rate [ Throughout] Blood Pressure 120/67 128/79 O2 Sat by Pulse 94 94 Oximetry 11/23/16 11/23/16 11/23/16 02:30 02:45 03:00 Temperature Pulse Rate 55 L 56 L Pulse Rate [ From Monitor] Pulse Rate [ 59 L Throughout] Respiratory 26 H 26 H Rate Respiratory 26 H Rate [ Throughout] Blood Pressure 128/79 118/67 O2 Sat by Pulse 94 92 Oximetry 11/23/16 11/23/16 11/23/16 03:30 04:00 04:30 Temperature 98.8 F Pulse Rate 55 L 55 L 55 L Pulse Rate [ 56 L From Monitor] Pulse Rate [ Throughout] Respiratory 26 H 26 H 26 H Rate Respiratory Rate [ Throughout] Blood Pressure 118/67 116/68 116/68 O2 Sat by Pulse 92 93 92 Oximetry 11/23/16 11/23/16 11/23/16 05:00 05:05 05:30 Temperature Pulse Rate 55 L 57 L 55 L Pulse Rate [ From Monitor] Pulse Rate [ Throughout] Respiratory 26 H 26 H Rate Respiratory Rate [ Throughout] Blood Pressure 114/70 114/70 114/70 O2 Sat by Pulse 93 94 93 Oximetry 11/23/16 11/23/16 11/23/16 06:00 06:30 07:00 Temperature Pulse Rate 52 L 51 L 52 L Pulse Rate [ From Monitor] Pulse Rate [ Throughout] Respiratory 26 H 26 H 26 H Rate Respiratory Rate [ Throughout] Blood Pressure 110/63 110/63 110/65 O2 Sat by Pulse 94 93 93 Oximetry 11/23/16 11/23/16 11/23/16 07:30 07:53 08:00 Temperature 97.6 F Pulse Rate 51 L 53 L Pulse Rate [ From Monitor] Pulse Rate [ Throughout] Respiratory 26 H 26 H Rate Respiratory Rate [ Throughout] Blood Pressure 110/65 107/59 O2 Sat by Pulse 93 92 Oximetry 11/23/16 11/23/16 11/23/16 08:25 08:30 08:33 Temperature Pulse Rate 52 L 54 L Pulse Rate [ From Monitor] Pulse Rate [ 50 L Throughout] Respiratory 26 H Rate Respiratory 26 H Rate [ Throughout] Blood Pressure 107/59 107/59 O2 Sat by Pulse 94 93 Oximetry 11/23/16 09:00 Temperature Pulse Rate 54 L Pulse Rate [ From Monitor] Pulse Rate [ Throughout] Respiratory 26 H Rate Respiratory Rate [ Throughout] Blood Pressure 108/61 O2 Sat by Pulse 92 Oximetry Constitutional: comatose, other (morbidly obese) ENT: other (orally intubated) Neck: supple, other (large in circumference) Effort: normal Ascultation: Bilateral: wheezes Percussion: Bilateral: not dull Cardiovascular: regular rate and rhythm Gastrointestinal: normoactive bowel sounds Extremities: no edema Neurologic: unable to assess CBC and BMP: 11/22/16 05:08 11/22/16 05:08 ABG, PT/INR, D-dimer: ABG POC ABG pH 7.475 (7.35-7.45) H 11/23/16 05:17 POC ABG pCO2 49.9 (35-45) H 11/23/16 05:17 POC ABG pO2 72 (80-105) L 11/23/16 05:17 POC ABG HCO3 36.7 11/23/16 05:17 POC ABG Total CO2 38 11/23/16 05:17 POC ABG O2 Sat 95 11/23/16 05:17 PT/INR, D-dimer D-Dimer 390.70 ng/mlDDU (0-234) H 11/20/16 21:00 Abnormal lab findings: Abnormal Labs 11/21/16 11/21/16 11/21/16 02:41 09:00 13:10 WBC RBC Hgb Hct Seg Neuts % (Manual) Lymphocytes % (Manual) Seg Neutrophils # Man Lymphocytes # (Manual) Monocytes # (Manual) POC ABG pH 7.290 L POC ABG pCO2 67.4 H 57.5 H POC ABG pO2 67 L 62 L Chloride BUN Creatinine Glucose Calcium Total Creatine Kinase 523 H CK-MB (CK-2) 6.6 H 11/22/16 11/22/16 11/22/16 05:08 05:08 05:18 WBC 13.8 H RBC 5.28 H Hgb 15.4 H Hct 48.0 H Seg Neuts % (Manual) 75.0 H Lymphocytes % (Manual) 4.0 L Seg Neutrophils # Man 10.4 H Lymphocytes # (Manual) 0.6 L Monocytes # (Manual) 1.0 H POC ABG pH POC ABG pCO2 55.7 H POC ABG pO2 65 L Chloride 96.9 L BUN 19 H Creatinine 0.5 L Glucose 151 H Calcium 8.2 L Total Creatine Kinase CK-MB (CK-2) 11/23/16 05:17 WBC RBC Hgb Hct Seg Neuts % (Manual) Lymphocytes % (Manual) Seg Neutrophils # Man Lymphocytes # (Manual) Monocytes # (Manual) POC ABG pH 7.475 H POC ABG pCO2 49.9 H POC ABG pO2 72 L Chloride BUN Creatinine Glucose Calcium Total Creatine Kinase CK-MB (CK-2)
--- NOTE | 2016-11-23 18:19 | Progress Note ---
Assessment and Plan Assessment and plan: 1. Acute hypoxic hypercapnic respiratory failure Intubated Treating underlying condition CPAP trial today 2. COPD exacerbation that required intubation On IV corticosteroids (continue same dose), along with inhaled bronchodilators Pulmonary following 3. Morbid obesity and likely BRENDA/OHS May benefit from weight loss and pulmonary follow-up for sleep study/NIPPV 4. Leukocytosis Secondary to corticosteroid use 5. Hyperglycemia Secondary to corticosteroid use 6. DVT prophylaxis Lovenox The high probability of a clinically significant, sudden or life threatening deterioration of the [] system(s) required my full and direct attention, intervention and personal management. The aggregate critical care time was [32] minutes. This time is in addition to time spent performing reported procedures but includes the following: [x] Data Review and interpretation [x] Patient assessment and monitoring of vital signs [x] Documentation [x] Medication orders and management History Interval history: sedated, intubated, no acute events; plan CPAP trial Hospitalist Physical - Constitutional Vitals: Temp Pulse Resp BP Pulse Ox 97.6 F 52 L 26 H 120/70 92 11/23/16 16:00 11/23/16 18:00 11/23/16 18:00 11/23/16 18:00 11/23/16 18:00 General appearance: Present: mild distress, obese (morbidly) - Neck Neck: Present: other (large, short neck). Absent: masses or JVD, carotid bruits - Respiratory Respiratory effort: other (intubated) Respiratory: bilateral: diminished, wheezing - Cardiovascular Rhythm: regular Heart Sounds: Present: S1 & S2. Absent: systolic murmur - Extremities Extremities: no ischemia Extremity abnormal: edema - Abdominal General gastrointestinal: soft, non-tender, normal bowel sounds, other (obese, ptotuberant) - Psychiatric Psychiatric: other (sedated) Results - Labs CBC & Chem 7: 11/22/16 05:08 11/22/16 05:08 Labs: Laboratory Last Values WBC 13.8 K/mm3 (4.5-11.0) H 11/22/16 05:08 RBC 5.28 M/mm3 (3.65-5.03) H 11/22/16 05:08 Hgb 15.4 gm/dl (10.1-14.3) H 11/22/16 05:08 Hct 48.0 % (30.3-42.9) H 11/22/16 05:08 MCV 91 fl (79-97) 11/22/16 05:08 MCH 29 pg (28-32) 11/22/16 05:08 MCHC 32 % (30-34) 11/22/16 05:08 RDW 14.9 % (13.2-15.2) 11/22/16 05:08 Plt Count 209 K/mm3 (140-440) 11/22/16 05:08 Lymph % (Auto) 13.4 % (13.4-35.0) 11/20/16 20:05 [place] % (Auto) 12.7 % (0.0-7.3) H 11/20/16 20:05 Eos % (Auto) 1.2 % (0.0-4.3) 11/20/16 20:05 Baso % (Auto) 0.6 % (0.0-1.8) 11/20/16 20:05 Lymph # 1.5 K/mm3 (1.2-5.4) 11/20/16 20:05 [place] # 1.4 K/mm3 (0.0-0.8) H 11/20/16 20:05 Eos # 0.1 K/mm3 (0.0-0.4) 11/20/16 20:05 Baso # 0.1 K/mm3 (0.0-0.1) 11/20/16 20:05 Add Manual Diff Complete 11/22/16 05:08 Total Counted 100 11/22/16 05:08 Seg Neutrophils % 72.1 % (40.0-70.0) H 11/20/16 20:05 Seg Neuts % (Manual) 75.0 % (40.0-70.0) H 11/22/16 05:08 Band Neutrophils % 14.0 % 11/22/16 05:08 Lymphocytes % (Manual) 4.0 % (13.4-35.0) L 11/22/16 05:08 Reactive Lymphs % (Man) 0 % 11/22/16 05:08 Monocytes % (Manual) 7.0 % (0.0-7.3) 11/22/16 05:08 Eosinophils % (Manual) 0 % (0.0-4.3) 11/22/16 05:08 Basophils % (Manual) 0 % (0.0-1.8) 11/22/16 05:08 Metamyelocytes % 0 % 11/22/16 05:08 Myelocytes % 0 % 11/22/16 05:08 Promyelocytes % 0 % 11/22/16 05:08 Blast Cells % 0 % 11/22/16 05:08 Nucleated RBC % Not Reportable 11/22/16 05:08 Seg Neutrophils # 7.9 K/mm3 (1.8-7.7) H 11/20/16 20:05 Seg Neutrophils # Man 10.4 K/mm3 (1.8-7.7) H 11/22/16 05:08 Band Neutrophils # 1.9 K/mm3 11/22/16 05:08 Lymphocytes # (Manual) 0.6 K/mm3 (1.2-5.4) L 11/22/16 05:08 Abs React Lymphs (Man) 0.0 K/mm3 11/22/16 05:08 Monocytes # (Manual) 1.0 K/mm3 (0.0-0.8) H 11/22/16 05:08 Eosinophils # (Manual) 0.0 K/mm3 (0.0-0.4) 11/22/16 05:08 Basophils # (Manual) 0.0 K/mm3 (0.0-0.1) 11/22/16 05:08 Metamyelocytes # 0.0 K/mm3 11/22/16 05:08 Myelocytes # 0.0 K/mm3 11/22/16 05:08 Promyelocytes # 0.0 K/mm3 11/22/16 05:08 Blast Cells # 0.0 K/mm3 11/22/16 05:08 WBC Morphology Not Reportable 11/22/16 05:08 Hypersegmented Neuts Not Reportable 11/22/16 05:08 Hyposegmented Neuts Not Reportable 11/22/16 05:08 Hypogranular Neuts Not Reportable 11/22/16 05:08 Smudge Cells Not Reportable 11/22/16 05:08 Toxic Granulation Not Reportable 11/22/16 05:08 Toxic Vacuolation Not Reportable 11/22/16 05:08 Dohle Bodies Not Reportable 11/22/16 05:08 Pelger-Huet Anomaly Not Reportable 11/22/16 05:08 Abigail Rods Not Reportable 11/22/16 05:08 Platelet Estimate Consistent w auto 11/22/16 05:08 Clumped Platelets Not Reportable 11/22/16 05:08 Plt Clumps, EDTA Not Reportable 11/22/16 05:08 Large Platelets Not Reportable 11/22/16 05:08 Giant Platelets Not Reportable 11/22/16 05:08 Platelet Satelliting Not Reportable 11/22/16 05:08 Plt Morphology Comment Not Reportable 11/22/16 05:08 RBC Morphology Not Reportable 11/22/16 05:08 Dimorphic RBCs Not Reportable 11/22/16 05:08 Polychromasia Not Reportable 11/22/16 05:08 Hypochromasia Not Reportable 11/22/16 05:08 Poikilocytosis Not Reportable 11/22/16 05:08 Anisocytosis 1+ 11/22/16 05:08 Microcytosis Not Reportable 11/22/16 05:08 Macrocytosis Not Reportable 11/22/16 05:08 Spherocytes Not Reportable 11/22/16 05:08 Pappenheimer Bodies Not Reportable 11/22/16 05:08 Sickle Cells Not Reportable 11/22/16 05:08 Target Cells Not Reportable 11/22/16 05:08 Tear Drop Cells Not Reportable 11/22/16 05:08 Ovalocytes Not Reportable 11/22/16 05:08 Helmet Cells Not Reportable 11/22/16 05:08 [place] Bodies Not Reportable 11/22/16 05:08 [place] Rings Not Reportable 11/22/16 05:08 Rey Cells Not Reportable 11/22/16 05:08 Bite Cells Not Reportable 11/22/16 05:08 Crenated Cell Not Reportable 11/22/16 05:08 Elliptocytes Not Reportable 11/22/16 05:08 Acanthocytes (Spur) Not Reportable 11/22/16 05:08 Rouleaux Not Reportable 11/22/16 05:08 Hemoglobin C Crystals Not Reportable 11/22/16 05:08 Schistocytes Not Reportable 11/22/16 05:08 Malaria parasites Not Reportable 11/22/16 05:08 [place] Bodies Not Reportable 11/22/16 05:08 Hem Pathologist Commnt No 11/22/16 05:08 D-Dimer 390.70 ng/mlDDU (0-234) H 11/20/16 21:00 POC ABG pH 7.475 (7.35-7.45) H 11/23/16 05:17 POC ABG pCO2 49.9 (35-45) H 11/23/16 05:17 POC ABG pO2 72 (80-105) L 11/23/16 05:17 POC ABG HCO3 36.7 11/23/16 05:17 POC ABG Total CO2 38 11/23/16 05:17 POC ABG O2 Sat 95 11/23/16 05:17 POC ABG Base Excess 13 11/23/16 05:17 FiO2 45 % 11/23/16 05:17 Sodium 139 mmol/L (137-145) 11/22/16 05:08 Potassium 4.7 mmol/L (3.6-5.0) 11/22/16 05:08 Chloride 96.9 mmol/L (98-107) L 11/22/16 05:08 Carbon Dioxide 30 mmol/L (22-30) 11/22/16 05:08 Anion Gap 17 mmol/L 11/22/16 05:08 BUN 19 mg/dL (7-17) H 11/22/16 05:08 Creatinine 0.5 mg/dL (0.7-1.2) L 11/22/16 05:08 Estimated GFR > 60 ml/min 11/22/16 05:08 BUN/Creatinine Ratio 38.00 % 11/22/16 05:08 Glucose 151 mg/dL (65-100) H 11/22/16 05:08 Calcium 8.2 mg/dL (8.4-10.2) L 11/22/16 05:08 Magnesium 2.2 mg/dL (1.7-2.3) 11/20/16 20:05 Total Creatine Kinase 523 units/L (30-135) H 11/21/16 09:00 CK-MB (CK-2) 6.6 ng/mL (0.0-4.0) H 11/21/16 09:00 CK-MB (CK-2) Rel Index 1.2 (0-4) 11/21/16 09:00 Troponin T < 0.010 ng/mL (0.00-0.029) 11/21/16 09:00 NT-Pro-B Natriuret Pep 1872 pg/mL (0-900) H 11/20/16 20:05
[2016-11-23 18:51] LABS: Albumin 3.4 g/dL (3.9-5); Albumin/Globulin Ratio 1.2 %; Alkaline Phosphatase 87 units/L (35-129); Bilirubin,Total 0.5 mg/dL (0.1-1.2); Blood Urea Nitrogen 27 mg/dL (7-17); Calcium 8.5 mg/dL (8.4-10.2); Carbon Dioxide 29 mmol/L (22-30); Glucose 122 mg/dL (65-100); Sodium 136 mmol/L (137-145); Total Protein 6.3 g/dL (6.3-8.2)
[2016-11-23 19:09] LABS: Anion Gap 18 mmol/L; Potassium 4.7 mmol/L (3.6-5.0)
[2016-11-23 19:10] LABS: Alanine Aminotransferase 45 units/L (7-56)
[2016-11-24] MEDS: DUONEB 0.5 MG-3 MG/3 ML SOLN IH SCH ×7 (02:21→23:56)
[2016-11-24] MEDS: fentaNYL DRIP Premix 2,000 MCG/100 ML BAG IV SCH (03:00)
[2016-11-24] MEDS: DIPRIVAN 10 MG/ML 1,000 MG/100 ML BOTTLE IV SCH (05:00)
[2016-11-24 05:45] LABS: ISTAT Base Excess 9; ISTAT HCO3 34.6; ISTAT PCO2 59.1 (35-45); ISTAT PH 7.375 (7.35-7.45); ISTAT PO2 100 (80-105); ISTAT SO2 97; ISTAT TCO2 36
--- NOTE | 2016-11-24 07:56 | XRay Report ---
Single view chest: Compared to 11/23/16. History: Followup of respiratory failure. Findings: Left heart border obscured by diffuse opacity left lung probably related to pleural effusion/atelectasis. Tip of endotracheal tube in normal position. Tip of NG tube below diaphragm. Right lung appears unremarkable. No significant mediastinal shift. Impression: Left atelectasis/left pleural effusion and/or pneumonia.
[2016-11-24] MEDS: PULMICORT IH SCH ×2 (08:54→20:46)
[2016-11-24] MEDS: BROVANA NEBU IH SCH ×2 (08:55→20:47)
[2016-11-24] MEDS: PEPCID PO SCH ×2 (09:53→22:00)
[2016-11-24] MEDS: LOVENOX SUB-Q SCH (09:53)
[2016-11-24 10:52] LABS: ISTAT Base Excess 9; ISTAT HCO3 35.5; ISTAT PH 7.313 (7.35-7.45); ISTAT PO2 105 (80-105); ISTAT SO2 97; ISTAT TCO2 38
--- NOTE | 2016-11-24 11:49 | Progress Note ---
Assessment and Plan 51 y/o female with known COPD, BRENDA, and noncompliance, admitted with acute on chronic hypercapnic respiratory failure. 1. Will attempt extubation this am 2. Will give lasix 40mg IV again today. 3. Pulmicort and brovana BID, continue 4. If extubated, CC diet, low Na and limited calories 5. Bipap ordered for QHS and PRN basis. CCT 31 minutes Subjective Date of service: 11/24/16 Interval history: No acute events. Awake and alert. Sedation off and tolerating PSV. Wants tube out. No family at bedside. Objective Vital Signs - 12hr 11/24/16 11/24/16 11/24/16 00:00 00:30 01:00 Temperature 97.6 F Pulse Rate 56 L 60 64 Pulse Rate [ 71 From Monitor] Pulse Rate [ Throughout] Respiratory 26 H 26 H Rate Respiratory Rate [ Throughout] Blood Pressure 111/69 128/87 114/74 O2 Sat by Pulse 95 96 94 Oximetry 11/24/16 11/24/16 11/24/16 01:30 02:00 02:23 Temperature Pulse Rate 56 L 55 L Pulse Rate [ From Monitor] Pulse Rate [ 55 L Throughout] Respiratory 26 H 26 H Rate Respiratory 26 H Rate [ Throughout] Blood Pressure 112/67 110/68 O2 Sat by Pulse 93 93 Oximetry 11/24/16 11/24/16 11/24/16 02:30 02:38 03:00 Temperature Pulse Rate 60 64 Pulse Rate [ From Monitor] Pulse Rate [ 62 Throughout] Respiratory 25 H 25 H Rate Respiratory 22 Rate [ Throughout] Blood Pressure 124/88 124/74 O2 Sat by Pulse 94 93 Oximetry 11/24/16 11/24/16 11/24/16 03:30 04:00 04:30 Temperature 97.5 F L Pulse Rate 55 L 53 L 56 L Pulse Rate [ 68 From Monitor] Pulse Rate [ Throughout] Respiratory 26 H 22 16 Rate Respiratory Rate [ Throughout] Blood Pressure 105/61 107/65 119/77 O2 Sat by Pulse 93 93 94 Oximetry 11/24/16 11/24/16 11/24/16 05:00 05:13 05:30 Temperature Pulse Rate 56 L 62 59 L Pulse Rate [ From Monitor] Pulse Rate [ Throughout] Respiratory 26 H 22 Rate Respiratory Rate [ Throughout] Blood Pressure 109/72 109/72 130/85 O2 Sat by Pulse 93 94 94 Oximetry 11/24/16 11/24/16 11/24/16 06:00 06:30 07:00 Temperature Pulse Rate 54 L 52 L 49 L Pulse Rate [ From Monitor] Pulse Rate [ Throughout] Respiratory 22 22 19 Rate Respiratory Rate [ Throughout] Blood Pressure 113/67 111/69 113/73 O2 Sat by Pulse 95 94 93 Oximetry 11/24/16 11/24/16 11/24/16 07:15 07:30 08:00 Temperature 97.5 F L Pulse Rate 50 L 51 L Pulse Rate [ 50 L From Monitor] Pulse Rate [ Throughout] Respiratory 22 22 22 Rate Respiratory Rate [ Throughout] Blood Pressure 119/73 117/73 O2 Sat by Pulse 94 94 94 Oximetry 11/24/16 11/24/16 11/24/16 08:30 08:46 08:51 Temperature Pulse Rate 66 71 73 Pulse Rate [ From Monitor] Pulse Rate [ Throughout] Respiratory 16 23 Rate Respiratory Rate [ Throughout] Blood Pressure 117/73 136/91 136/91 O2 Sat by Pulse 98 99 97 Oximetry 11/24/16 11/24/16 11/24/16 08:55 09:00 09:30 Temperature Pulse Rate 88 83 Pulse Rate [ From Monitor] Pulse Rate [ 77 Throughout] Respiratory 13 15 Rate Respiratory 16 Rate [ Throughout] Blood Pressure 144/90 145/87 O2 Sat by Pulse 97 97 Oximetry Constitutional: alert, other (morbidly obese) ENT: other (orally intubated) Neck: supple, other (large in circumference) Effort: normal Ascultation: Bilateral: wheezes Percussion: Bilateral: not dull Cardiovascular: regular rate and rhythm Gastrointestinal: normoactive bowel sounds Extremities: no edema Neurologic: unable to assess CBC and BMP: 11/22/16 05:08 11/23/16 17:41 ABG, PT/INR, D-dimer: ABG POC ABG pH 7.313 (7.35-7.45) L 11/24/16 10:32 POC ABG pCO2 70.0 (35-45) H 11/24/16 10:32 POC ABG pO2 105 (80-105) 11/24/16 10:32 POC ABG HCO3 35.5 11/24/16 10:32 POC ABG Total CO2 38 11/24/16 10:32 POC ABG O2 Sat 97 11/24/16 10:32 PT/INR, D-dimer D-Dimer 390.70 ng/mlDDU (0-234) H 11/20/16 21:00 Abnormal lab findings: Abnormal Labs 11/21/16 11/21/16 11/21/16 02:41 09:00 13:10 WBC RBC Hgb Hct Seg Neuts % (Manual) Lymphocytes % (Manual) Seg Neutrophils # Man Lymphocytes # (Manual) Monocytes # (Manual) POC ABG pH 7.290 L POC ABG pCO2 67.4 H 57.5 H POC ABG pO2 67 L 62 L Sodium Chloride BUN Creatinine Glucose POC Glucose Calcium AST Total Creatine Kinase 523 H CK-MB (CK-2) 6.6 H Albumin 11/22/16 11/22/16 11/22/16 05:08 05:08 05:18 WBC 13.8 H RBC 5.28 H Hgb 15.4 H Hct 48.0 H Seg Neuts % (Manual) 75.0 H Lymphocytes % (Manual) 4.0 L Seg Neutrophils # Man 10.4 H Lymphocytes # (Manual) 0.6 L Monocytes # (Manual) 1.0 H POC ABG pH POC ABG pCO2 55.7 H POC ABG pO2 65 L Sodium Chloride 96.9 L BUN 19 H Creatinine 0.5 L Glucose 151 H POC Glucose Calcium 8.2 L AST Total Creatine Kinase CK-MB (CK-2) Albumin 11/23/16 11/23/16 11/23/16 05:17 17:41 23:54 WBC RBC Hgb Hct Seg Neuts % (Manual) Lymphocytes % (Manual) Seg Neutrophils # Man Lymphocytes # (Manual) Monocytes # (Manual) POC ABG pH 7.475 H POC ABG pCO2 49.9 H POC ABG pO2 72 L Sodium 136 L Chloride 94.0 L BUN 27 H Creatinine 0.5 L Glucose 122 H POC Glucose 132 H Calcium AST 92 H Total Creatine Kinase CK-MB (CK-2) Albumin 3.4 L 11/24/16 11/24/16 05:27 10:32 WBC RBC Hgb Hct Seg Neuts % (Manual) Lymphocytes % (Manual) Seg Neutrophils # Man Lymphocytes # (Manual) Monocytes # (Manual) POC ABG pH 7.313 L POC ABG pCO2 59.1 H 70.0 H POC ABG pO2 Sodium Chloride BUN Creatinine Glucose POC Glucose Calcium AST Total Creatine Kinase CK-MB (CK-2) Albumin
[2016-11-24] MEDS ORDERED: LASIX IV ONE (15:00)
--- NOTE | 2016-11-24 19:39 | Progress Note ---
Assessment and Plan Assessment and plan: 1. Acute hypoxic hypercapnic respiratory failure Extubated today BiPAP QHS and as needed per pulmonary recommendation 2. COPD exacerbation that required intubation Continue IV corticosteroids along with inhaled bronchodilators, incentive spirometry, chest PT Pulmonary following 3. Morbid obesity and likely BRENDA/OHS May benefit from weight loss and outpatient pulmonary follow-up for sleep study/ NIPPV 4. Leukocytosis Secondary to corticosteroid use 5. Hyperglycemia Secondary to corticosteroid use 6. DVT prophylaxis Lovenox History Interval history: extubated today, placed on BiPAP as needed, CPT Hospitalist Physical - Constitutional Vitals: Temp Pulse Resp BP Pulse Ox 98.2 F 89 15 153/87 94 11/24/16 16:00 11/24/16 18:30 11/24/16 18:30 11/24/16 18:30 11/24/16 18:30 General appearance: Present: no acute distress, obese (morbidly) - EENT Eyes: Present: PERRL, EOM intact - Neck Neck: Absent: enlarged thyroid, masses or JVD, carotid bruits - Respiratory Respiratory effort: normal Respiratory: bilateral: diminished, negative: rhonchi, wheezing - Cardiovascular Rhythm: regular Heart Sounds: Present: S1 & S2. Absent: systolic murmur - Extremities Extremities: no ischemia Extremity abnormal: edema - Abdominal General gastrointestinal: soft, non-tender, non-distended, normal bowel sounds - Integumentary Integumentary: Present: warm, dry. Absent: jaundice, rash - Neurologic Neurologic: CNII-XII intact, no focal deficits Results - Labs CBC & Chem 7: 11/22/16 05:08 11/23/16 17:41 Labs: Laboratory Last Values WBC 13.8 K/mm3 (4.5-11.0) H 11/22/16 05:08 RBC 5.28 M/mm3 (3.65-5.03) H 11/22/16 05:08 Hgb 15.4 gm/dl (10.1-14.3) H 11/22/16 05:08 Hct 48.0 % (30.3-42.9) H 11/22/16 05:08 MCV 91 fl (79-97) 11/22/16 05:08 MCH 29 pg (28-32) 11/22/16 05:08 MCHC 32 % (30-34) 11/22/16 05:08 RDW 14.9 % (13.2-15.2) 11/22/16 05:08 Plt Count 209 K/mm3 (140-440) 11/22/16 05:08 Lymph % (Auto) 13.4 % (13.4-35.0) 11/20/16 20:05 [place] % (Auto) 12.7 % (0.0-7.3) H 11/20/16 20:05 Eos % (Auto) 1.2 % (0.0-4.3) 11/20/16 20:05 Baso % (Auto) 0.6 % (0.0-1.8) 11/20/16 20:05 Lymph # 1.5 K/mm3 (1.2-5.4) 11/20/16 20:05 [place] # 1.4 K/mm3 (0.0-0.8) H 11/20/16 20:05 Eos # 0.1 K/mm3 (0.0-0.4) 11/20/16 20:05 Baso # 0.1 K/mm3 (0.0-0.1) 11/20/16 20:05 Add Manual Diff Complete 11/22/16 05:08 Total Counted 100 11/22/16 05:08 Seg Neutrophils % 72.1 % (40.0-70.0) H 11/20/16 20:05 Seg Neuts % (Manual) 75.0 % (40.0-70.0) H 11/22/16 05:08 Band Neutrophils % 14.0 % 11/22/16 05:08 Lymphocytes % (Manual) 4.0 % (13.4-35.0) L 11/22/16 05:08 Reactive Lymphs % (Man) 0 % 11/22/16 05:08 Monocytes % (Manual) 7.0 % (0.0-7.3) 11/22/16 05:08 Eosinophils % (Manual) 0 % (0.0-4.3) 11/22/16 05:08 Basophils % (Manual) 0 % (0.0-1.8) 11/22/16 05:08 Metamyelocytes % 0 % 11/22/16 05:08 Myelocytes % 0 % 11/22/16 05:08 Promyelocytes % 0 % 11/22/16 05:08 Blast Cells % 0 % 11/22/16 05:08 Nucleated RBC % Not Reportable 11/22/16 05:08 Seg Neutrophils # 7.9 K/mm3 (1.8-7.7) H 11/20/16 20:05 Seg Neutrophils # Man 10.4 K/mm3 (1.8-7.7) H 11/22/16 05:08 Band Neutrophils # 1.9 K/mm3 11/22/16 05:08 Lymphocytes # (Manual) 0.6 K/mm3 (1.2-5.4) L 11/22/16 05:08 Abs React Lymphs (Man) 0.0 K/mm3 11/22/16 05:08 Monocytes # (Manual) 1.0 K/mm3 (0.0-0.8) H 11/22/16 05:08 Eosinophils # (Manual) 0.0 K/mm3 (0.0-0.4) 11/22/16 05:08 Basophils # (Manual) 0.0 K/mm3 (0.0-0.1) 11/22/16 05:08 Metamyelocytes # 0.0 K/mm3 11/22/16 05:08 Myelocytes # 0.0 K/mm3 11/22/16 05:08 Promyelocytes # 0.0 K/mm3 11/22/16 05:08 Blast Cells # 0.0 K/mm3 11/22/16 05:08 WBC Morphology Not Reportable 11/22/16 05:08 Hypersegmented Neuts Not Reportable 11/22/16 05:08 Hyposegmented Neuts Not Reportable 11/22/16 05:08 Hypogranular Neuts Not Reportable 11/22/16 05:08 Smudge Cells Not Reportable 11/22/16 05:08 Toxic Granulation Not Reportable 11/22/16 05:08 Toxic Vacuolation Not Reportable 11/22/16 05:08 Dohle Bodies Not Reportable 11/22/16 05:08 Pelger-Huet Anomaly Not Reportable 11/22/16 05:08 Abigail Rods Not Reportable 11/22/16 05:08 Platelet Estimate Consistent w auto 11/22/16 05:08 Clumped Platelets Not Reportable 11/22/16 05:08 Plt Clumps, EDTA Not Reportable 11/22/16 05:08 Large Platelets Not Reportable 11/22/16 05:08 Giant Platelets Not Reportable 11/22/16 05:08 Platelet Satelliting Not Reportable 11/22/16 05:08 Plt Morphology Comment Not Reportable 11/22/16 05:08 RBC Morphology Not Reportable 11/22/16 05:08 Dimorphic RBCs Not Reportable 11/22/16 05:08 Polychromasia Not Reportable 11/22/16 05:08 Hypochromasia Not Reportable 11/22/16 05:08 Poikilocytosis Not Reportable 11/22/16 05:08 Anisocytosis 1+ 11/22/16 05:08 Microcytosis Not Reportable 11/22/16 05:08 Macrocytosis Not Reportable 11/22/16 05:08 Spherocytes Not Reportable 11/22/16 05:08 Pappenheimer Bodies Not Reportable 11/22/16 05:08 Sickle Cells Not Reportable 11/22/16 05:08 Target Cells Not Reportable 11/22/16 05:08 Tear Drop Cells Not Reportable 11/22/16 05:08 Ovalocytes Not Reportable 11/22/16 05:08 Helmet Cells Not Reportable 11/22/16 05:08 Bowers-Flowella Bodies Not Reportable 11/22/16 05:08 [place] Rings Not Reportable 11/22/16 05:08 Rey Cells Not Reportable 11/22/16 05:08 Bite Cells Not Reportable 11/22/16 05:08 Crenated Cell Not Reportable 11/22/16 05:08 Elliptocytes Not Reportable 11/22/16 05:08 Acanthocytes (Spur) Not Reportable 11/22/16 05:08 Rouleaux Not Reportable 11/22/16 05:08 Hemoglobin C Crystals Not Reportable 11/22/16 05:08 Schistocytes Not Reportable 11/22/16 05:08 Malaria parasites Not Reportable 11/22/16 05:08 [place] Bodies Not Reportable 11/22/16 05:08 Hem Pathologist Commnt No 11/22/16 05:08 D-Dimer 390.70 ng/mlDDU (0-234) H 11/20/16 21:00 POC ABG pH 7.313 (7.35-7.45) L 11/24/16 10:32 POC ABG pCO2 70.0 (35-45) H 11/24/16 10:32 POC ABG pO2 105 (80-105) 11/24/16 10:32 POC ABG HCO3 35.5 11/24/16 10:32 POC ABG Total CO2 38 11/24/16 10:32 POC ABG O2 Sat 97 11/24/16 10:32 POC ABG Base Excess 9 11/24/16 10:32 FiO2 40 % 11/24/16 10:32 Sodium 136 mmol/L (137-145) L 11/23/16 17:41 Potassium 4.7 mmol/L (3.6-5.0) 11/23/16 17:41 Chloride 94.0 mmol/L (98-107) L 11/23/16 17:41 Carbon Dioxide 29 mmol/L (22-30) 11/23/16 17:41 Anion Gap 18 mmol/L 11/23/16 17:41 BUN 27 mg/dL (7-17) H 11/23/16 17:41 Creatinine 0.5 mg/dL (0.7-1.2) L 11/23/16 17:41 Estimated GFR > 60 ml/min 11/23/16 17:41 BUN/Creatinine Ratio 54.00 % 11/23/16 17:41 Glucose 122 mg/dL (65-100) H 11/23/16 17:41 POC Glucose 132 (70-105) H 11/23/16 23:54 Calcium 8.5 mg/dL (8.4-10.2) 11/23/16 17:41 Magnesium 2.2 mg/dL (1.7-2.3) 11/20/16 20:05 Total Bilirubin 0.5 mg/dL (0.1-1.2) 11/23/16 17:41 AST 92 units/L (5-40) H 11/23/16 17:41 ALT 45 units/L (7-56) 11/23/16 17:41 Alkaline Phosphatase 87 units/L (35-129) 11/23/16 17:41 Total Creatine Kinase 523 units/L (30-135) H 11/21/16 09:00 CK-MB (CK-2) 6.6 ng/mL (0.0-4.0) H 11/21/16 09:00 CK-MB (CK-2) Rel Index 1.2 (0-4) 11/21/16 09:00 Troponin T < 0.010 ng/mL (0.00-0.029) 11/21/16 09:00 NT-Pro-B Natriuret Pep 1872 pg/mL (0-900) H 11/20/16 20:05 Total Protein 6.3 g/dL (6.3-8.2) 11/23/16 17:41 Albumin 3.4 g/dL (3.9-5) L 11/23/16 17:41 Albumin/Globulin Ratio 1.2 % 11/23/16 17:41
[2016-11-24] MEDS: ATIVAN IV PRN (23:21)
[2016-11-25] MEDS: DUONEB 0.5 MG-3 MG/3 ML SOLN IH SCH ×7 (03:45→23:49)
[2016-11-25] MEDS: PEPCID PO SCH ×2 (09:23→22:33)
[2016-11-25] MEDS: LOVENOX SUB-Q SCH (09:23)
[2016-11-25] MEDS: PULMICORT IH SCH ×2 (09:41→20:21)
[2016-11-25] MEDS: BROVANA NEBU IH SCH ×2 (09:41→20:20)
--- NOTE | 2016-11-25 09:42 | XRay Report ---
Single view chest: Compared to 11/24/16. History: Followup of respiratory failure. Findings: Cardiomegaly. Trachea is midline. Complete clearing of the opacity left upper lobe. Mild pulmonary vascular congestion right lung. Impression: Complete clearing of the opacity left lung. Increase in right pulmonary venous congestion.
[2016-11-25] MEDS: ATIVAN IV PRN ×2 (12:25→22:34)
[2016-11-25] MEDS ORDERED: LASIX IV ONE (13:55)
--- NOTE | 2016-11-25 13:55 | Progress Note ---
Assessment and Plan 51 y/o female with known COPD, BRENDA, and noncompliance, admitted with acute on chronic hypercapnic respiratory failure. 1. Ok for transfer to floor 2. Will give lasix 40mg IV again today. 3. Pulmicort and brovana BID, continue 4. CC diet, low Na and limited calories 5. Bipap ordered for QHS and PRN basis. Subjective Date of service: 11/25/16 Interval history: No acute events. Successful extubation on yesterday. PPV at night and tolerating. Objective Vital Signs - 12hr 11/25/16 11/25/16 11/25/16 02:00 02:30 03:00 Temperature Pulse Rate 78 75 76 Pulse Rate [ From Monitor] Pulse Rate [ Throughout] Respiratory 15 16 12 Rate Respiratory Rate [Back] Respiratory Rate [ Throughout] Blood Pressure 126/75 127/82 118/91 O2 Sat by Pulse 97 99 98 Oximetry 11/25/16 11/25/16 11/25/16 03:30 03:46 04:00 Temperature 98.5 F Pulse Rate 79 78 Pulse Rate [ From Monitor] Pulse Rate [ 81 Throughout] Respiratory 14 17 Rate Respiratory 18 Rate [Back] Respiratory 16 Rate [ Throughout] Blood Pressure 127/82 146/89 O2 Sat by Pulse 98 96 Oximetry 11/25/16 11/25/16 11/25/16 04:02 04:30 05:00 Temperature Pulse Rate 79 74 Pulse Rate [ From Monitor] Pulse Rate [ 83 Throughout] Respiratory 15 14 Rate Respiratory Rate [Back] Respiratory 16 Rate [ Throughout] Blood Pressure 123/65 117/76 O2 Sat by Pulse 93 94 Oximetry 11/25/16 11/25/16 11/25/16 05:30 06:00 06:30 Temperature Pulse Rate 80 73 73 Pulse Rate [ From Monitor] Pulse Rate [ Throughout] Respiratory 20 12 15 Rate Respiratory 18 Rate [Back] Respiratory Rate [ Throughout] Blood Pressure 128/74 137/81 131/82 O2 Sat by Pulse 94 Oximetry 11/25/16 11/25/16 11/25/16 07:00 07:30 08:00 Temperature 97.8 F Pulse Rate 75 73 75 Pulse Rate [ 75 From Monitor] Pulse Rate [ Throughout] Respiratory 17 13 13 Rate Respiratory Rate [Back] Respiratory Rate [ Throughout] Blood Pressure 125/70 111/70 134/87 O2 Sat by Pulse 97 95 97 Oximetry 11/25/16 11/25/16 11/25/16 08:30 09:00 09:30 Temperature Pulse Rate 90 82 85 Pulse Rate [ From Monitor] Pulse Rate [ Throughout] Respiratory 20 14 19 Rate Respiratory Rate [Back] Respiratory Rate [ Throughout] Blood Pressure 134/87 132/95 149/70 O2 Sat by Pulse 82 L 96 96 Oximetry 11/25/16 11/25/16 11/25/16 10:00 10:30 11:00 Temperature Pulse Rate 77 76 78 Pulse Rate [ From Monitor] Pulse Rate [ Throughout] Respiratory 14 13 13 Rate Respiratory 14 Rate [Back] Respiratory Rate [ Throughout] Blood Pressure 117/65 137/83 149/89 O2 Sat by Pulse 94 96 95 Oximetry 11/25/16 11/25/16 11/25/16 11:30 12:00 12:30 Temperature 98.1 F Pulse Rate 77 82 85 Pulse Rate [ 82 From Monitor] Pulse Rate [ Throughout] Respiratory 14 16 Rate Respiratory Rate [Back] Respiratory Rate [ Throughout] Blood Pressure 115/72 120/64 120/64 O2 Sat by Pulse 96 76 L Oximetry Constitutional: alert, other (morbidly obese) Neck: supple Effort: normal Ascultation: Bilateral: wheezes Percussion: Bilateral: not dull Cardiovascular: regular rate and rhythm Gastrointestinal: normoactive bowel sounds Extremities: no edema Neurologic: unable to assess CBC and BMP: 11/22/16 05:08 11/23/16 17:41 ABG, PT/INR, D-dimer: ABG POC ABG pH 7.313 (7.35-7.45) L 11/24/16 10:32 POC ABG pCO2 70.0 (35-45) H 11/24/16 10:32 POC ABG pO2 105 (80-105) 11/24/16 10:32 POC ABG HCO3 35.5 11/24/16 10:32 POC ABG Total CO2 38 11/24/16 10:32 POC ABG O2 Sat 97 11/24/16 10:32 PT/INR, D-dimer D-Dimer 390.70 ng/mlDDU (0-234) H 11/20/16 21:00 Abnormal lab findings: Abnormal Labs 11/21/16 11/21/16 11/21/16 02:41 09:00 13:10 WBC RBC Hgb Hct Seg Neuts % (Manual) Lymphocytes % (Manual) Seg Neutrophils # Man Lymphocytes # (Manual) Monocytes # (Manual) POC ABG pH 7.290 L POC ABG pCO2 67.4 H 57.5 H POC ABG pO2 67 L 62 L Sodium Chloride BUN Creatinine Glucose POC Glucose Calcium AST Total Creatine Kinase 523 H CK-MB (CK-2) 6.6 H Albumin 11/22/16 11/22/16 11/22/16 05:08 05:08 05:18 WBC 13.8 H RBC 5.28 H Hgb 15.4 H Hct 48.0 H Seg Neuts % (Manual) 75.0 H Lymphocytes % (Manual) 4.0 L Seg Neutrophils # Man 10.4 H Lymphocytes # (Manual) 0.6 L Monocytes # (Manual) 1.0 H POC ABG pH POC ABG pCO2 55.7 H POC ABG pO2 65 L Sodium Chloride 96.9 L BUN 19 H Creatinine 0.5 L Glucose 151 H POC Glucose Calcium 8.2 L AST Total Creatine Kinase CK-MB (CK-2) Albumin 11/23/16 11/23/16 11/23/16 05:17 17:41 23:54 WBC RBC Hgb Hct Seg Neuts % (Manual) Lymphocytes % (Manual) Seg Neutrophils # Man Lymphocytes # (Manual) Monocytes # (Manual) POC ABG pH 7.475 H POC ABG pCO2 49.9 H POC ABG pO2 72 L Sodium 136 L Chloride 94.0 L BUN 27 H Creatinine 0.5 L Glucose 122 H POC Glucose 132 H Calcium AST 92 H Total Creatine Kinase CK-MB (CK-2) Albumin 3.4 L 11/24/16 11/24/16 05:27 10:32 WBC RBC Hgb Hct Seg Neuts % (Manual) Lymphocytes % (Manual) Seg Neutrophils # Man Lymphocytes # (Manual) Monocytes # (Manual) POC ABG pH 7.313 L POC ABG pCO2 59.1 H 70.0 H POC ABG pO2 Sodium Chloride BUN Creatinine Glucose POC Glucose Calcium AST Total Creatine Kinase CK-MB (CK-2) Albumin
--- NOTE | 2016-11-25 15:41 | Progress Note ---
Assessment and Plan Assessment and plan: 1. Acute hypoxic hypercapnic respiratory failure Extubated 11/24 BiPAP QHS and as needed per pulmonary recommendation 2. COPD exacerbation that required intubation Continue IV corticosteroids along with inhaled bronchodilators, incentive spirometry, chest PT Plan to chahge CS to po tomorrow Pulmonary following 3. Morbid obesity and likely BRENDA/OHS May benefit from weight loss and outpatient pulmonary follow-up for sleep study/ NIPPV 4. Leukocytosis Secondary to corticosteroid use 5. Hyperglycemia Secondary to corticosteroid use 6. DVT prophylaxis Lovenox History Interval history: extubated yesterday,on BiPAP during the night, doing well Hospitalist Physical - Constitutional Vitals: Temp Pulse Resp BP Pulse Ox 98.1 F 85 16 120/64 96 11/25/16 12:00 11/25/16 12:30 11/25/16 12:00 11/25/16 12:30 11/25/16 12:00 General appearance: Present: no acute distress, obese (morbidly) - Neck Neck: Absent: enlarged thyroid, masses or JVD, carotid bruits - Respiratory Respiratory effort: normal Respiratory: bilateral: diminished, negative: rhonchi, wheezing - Cardiovascular Rhythm: regular Heart Sounds: Present: S1 & S2. Absent: systolic murmur - Extremities Extremities: no ischemia - Abdominal General gastrointestinal: soft, non-tender, non-distended, normal bowel sounds - Psychiatric Psychiatric: cooperative - Neurologic Neurologic: CNII-XII intact, no focal deficits Results - Labs CBC & Chem 7: 11/22/16 05:08 11/23/16 17:41 Labs: Laboratory Last Values WBC 13.8 K/mm3 (4.5-11.0) H 11/22/16 05:08 RBC 5.28 M/mm3 (3.65-5.03) H 11/22/16 05:08 Hgb 15.4 gm/dl (10.1-14.3) H 11/22/16 05:08 Hct 48.0 % (30.3-42.9) H 11/22/16 05:08 MCV 91 fl (79-97) 11/22/16 05:08 MCH 29 pg (28-32) 11/22/16 05:08 MCHC 32 % (30-34) 11/22/16 05:08 RDW 14.9 % (13.2-15.2) 11/22/16 05:08 Plt Count 209 K/mm3 (140-440) 11/22/16 05:08 Lymph % (Auto) 13.4 % (13.4-35.0) 11/20/16 20:05 [place] % (Auto) 12.7 % (0.0-7.3) H 11/20/16 20:05 Eos % (Auto) 1.2 % (0.0-4.3) 11/20/16 20:05 Baso % (Auto) 0.6 % (0.0-1.8) 11/20/16 20:05 Lymph # 1.5 K/mm3 (1.2-5.4) 11/20/16 20:05 [place] # 1.4 K/mm3 (0.0-0.8) H 11/20/16 20:05 Eos # 0.1 K/mm3 (0.0-0.4) 11/20/16 20:05 Baso # 0.1 K/mm3 (0.0-0.1) 11/20/16 20:05 Add Manual Diff Complete 11/22/16 05:08 Total Counted 100 11/22/16 05:08 Seg Neutrophils % 72.1 % (40.0-70.0) H 11/20/16 20:05 Seg Neuts % (Manual) 75.0 % (40.0-70.0) H 11/22/16 05:08 Band Neutrophils % 14.0 % 11/22/16 05:08 Lymphocytes % (Manual) 4.0 % (13.4-35.0) L 11/22/16 05:08 Reactive Lymphs % (Man) 0 % 11/22/16 05:08 Monocytes % (Manual) 7.0 % (0.0-7.3) 11/22/16 05:08 Eosinophils % (Manual) 0 % (0.0-4.3) 11/22/16 05:08 Basophils % (Manual) 0 % (0.0-1.8) 11/22/16 05:08 Metamyelocytes % 0 % 11/22/16 05:08 Myelocytes % 0 % 11/22/16 05:08 Promyelocytes % 0 % 11/22/16 05:08 Blast Cells % 0 % 11/22/16 05:08 Nucleated RBC % Not Reportable 11/22/16 05:08 Seg Neutrophils # 7.9 K/mm3 (1.8-7.7) H 11/20/16 20:05 Seg Neutrophils # Man 10.4 K/mm3 (1.8-7.7) H 11/22/16 05:08 Band Neutrophils # 1.9 K/mm3 11/22/16 05:08 Lymphocytes # (Manual) 0.6 K/mm3 (1.2-5.4) L 11/22/16 05:08 Abs React Lymphs (Man) 0.0 K/mm3 11/22/16 05:08 Monocytes # (Manual) 1.0 K/mm3 (0.0-0.8) H 11/22/16 05:08 Eosinophils # (Manual) 0.0 K/mm3 (0.0-0.4) 11/22/16 05:08 Basophils # (Manual) 0.0 K/mm3 (0.0-0.1) 11/22/16 05:08 Metamyelocytes # 0.0 K/mm3 11/22/16 05:08 Myelocytes # 0.0 K/mm3 11/22/16 05:08 Promyelocytes # 0.0 K/mm3 11/22/16 05:08 Blast Cells # 0.0 K/mm3 11/22/16 05:08 WBC Morphology Not Reportable 11/22/16 05:08 Hypersegmented Neuts Not Reportable 11/22/16 05:08 Hyposegmented Neuts Not Reportable 11/22/16 05:08 Hypogranular Neuts Not Reportable 11/22/16 05:08 Smudge Cells Not Reportable 11/22/16 05:08 Toxic Granulation Not Reportable 11/22/16 05:08 Toxic Vacuolation Not Reportable 11/22/16 05:08 Dohle Bodies Not Reportable 11/22/16 05:08 Pelger-Huet Anomaly Not Reportable 11/22/16 05:08 Abigail Rods Not Reportable 11/22/16 05:08 Platelet Estimate Consistent w auto 11/22/16 05:08 Clumped Platelets Not Reportable 11/22/16 05:08 Plt Clumps, EDTA Not Reportable 11/22/16 05:08 Large Platelets Not Reportable 11/22/16 05:08 Giant Platelets Not Reportable 11/22/16 05:08 Platelet Satelliting Not Reportable 11/22/16 05:08 Plt Morphology Comment Not Reportable 11/22/16 05:08 RBC Morphology Not Reportable 11/22/16 05:08 Dimorphic RBCs Not Reportable 11/22/16 05:08 Polychromasia Not Reportable 11/22/16 05:08 Hypochromasia Not Reportable 11/22/16 05:08 Poikilocytosis Not Reportable 11/22/16 05:08 Anisocytosis 1+ 11/22/16 05:08 Microcytosis Not Reportable 11/22/16 05:08 Macrocytosis Not Reportable 11/22/16 05:08 Spherocytes Not Reportable 11/22/16 05:08 Pappenheimer Bodies Not Reportable 11/22/16 05:08 Sickle Cells Not Reportable 11/22/16 05:08 Target Cells Not Reportable 11/22/16 05:08 Tear Drop Cells Not Reportable 11/22/16 05:08 Ovalocytes Not Reportable 11/22/16 05:08 Helmet Cells Not Reportable 11/22/16 05:08 [place] Bodies Not Reportable 11/22/16 05:08 [place] Rings Not Reportable 11/22/16 05:08 [place] Cells Not Reportable 11/22/16 05:08 Bite Cells Not Reportable 11/22/16 05:08 Crenated Cell Not Reportable 11/22/16 05:08 Elliptocytes Not Reportable 11/22/16 05:08 Acanthocytes (Spur) Not Reportable 11/22/16 05:08 Rouleaux Not Reportable 11/22/16 05:08 Hemoglobin C Crystals Not Reportable 11/22/16 05:08 Schistocytes Not Reportable 11/22/16 05:08 Malaria parasites Not Reportable 11/22/16 05:08 Sylvain Bodies Not Reportable 11/22/16 05:08 Hem Pathologist Commnt No 11/22/16 05:08 D-Dimer 390.70 ng/mlDDU (0-234) H 11/20/16 21:00 POC ABG pH 7.313 (7.35-7.45) L 11/24/16 10:32 POC ABG pCO2 70.0 (35-45) H 11/24/16 10:32 POC ABG pO2 105 (80-105) 11/24/16 10:32 POC ABG HCO3 35.5 11/24/16 10:32 POC ABG Total CO2 38 11/24/16 10:32 POC ABG O2 Sat 97 11/24/16 10:32 POC ABG Base Excess 9 11/24/16 10:32 FiO2 40 % 11/24/16 10:32 Sodium 136 mmol/L (137-145) L 11/23/16 17:41 Potassium 4.7 mmol/L (3.6-5.0) 11/23/16 17:41 Chloride 94.0 mmol/L (98-107) L 11/23/16 17:41 Carbon Dioxide 29 mmol/L (22-30) 11/23/16 17:41 Anion Gap 18 mmol/L 11/23/16 17:41 BUN 27 mg/dL (7-17) H 11/23/16 17:41 Creatinine 0.5 mg/dL (0.7-1.2) L 11/23/16 17:41 Estimated GFR > 60 ml/min 11/23/16 17:41 BUN/Creatinine Ratio 54.00 % 11/23/16 17:41 Glucose 122 mg/dL (65-100) H 11/23/16 17:41 POC Glucose 132 (70-105) H 11/23/16 23:54 Calcium 8.5 mg/dL (8.4-10.2) 11/23/16 17:41 Magnesium 2.2 mg/dL (1.7-2.3) 11/20/16 20:05 Total Bilirubin 0.5 mg/dL (0.1-1.2) 11/23/16 17:41 AST 92 units/L (5-40) H 11/23/16 17:41 ALT 45 units/L (7-56) 11/23/16 17:41 Alkaline Phosphatase 87 units/L (35-129) 11/23/16 17:41 Total Creatine Kinase 523 units/L (30-135) H 11/21/16 09:00 CK-MB (CK-2) 6.6 ng/mL (0.0-4.0) H 11/21/16 09:00 CK-MB (CK-2) Rel Index 1.2 (0-4) 11/21/16 09:00 Troponin T < 0.010 ng/mL (0.00-0.029) 11/21/16 09:00 NT-Pro-B Natriuret Pep 1872 pg/mL (0-900) H 11/20/16 20:05 Total Protein 6.3 g/dL (6.3-8.2) 11/23/16 17:41 Albumin 3.4 g/dL (3.9-5) L 11/23/16 17:41 Albumin/Globulin Ratio 1.2 % 11/23/16 17:41
[2016-11-25] MEDS ORDERED: DUONEB 0.5 MG-3 MG/3 ML SOLN IH ONE (17:50)
[2016-11-25] MEDS ORDERED: LASIX ONE (18:06)
[2016-11-26] MEDS: DUONEB 0.5 MG-3 MG/3 ML SOLN IH SCH ×6 (04:42→23:42)
[2016-11-26] MEDS: BROVANA NEBU IH SCH ×2 (08:53→19:48)
[2016-11-26] MEDS: PULMICORT IH SCH ×2 (08:53→19:48)
[2016-11-26] MEDS: ATIVAN IV PRN ×3 (09:13→23:07)
[2016-11-26] MEDS: LOVENOX SUB-Q SCH (10:08)
[2016-11-26] MEDS: PEPCID PO SCH ×2 (10:08→21:41)
--- NOTE | 2016-11-26 12:45 | Progress Note ---
Assessment and Plan Assessment and plan: 1. Acute hypoxic hypercapnic respiratory failure Extubated 11/24 BiPAP QHS and as needed per pulmonary recommendation 2. COPD exacerbation that required intubation Continue IV corticosteroids along with inhaled bronchodilators, incentive spirometry, chest PT Decreaase dose of CS today, plan to switch to po tomorrow Improving 3. Morbid obesity and likely BRENDA/OHS May benefit from weight loss and outpatient pulmonary follow-up for sleep study/ NIPPV 4. Leukocytosis Secondary to corticosteroid use 5. Hyperglycemia Secondary to corticosteroid use 6. DVT prophylaxis Lovenox History Interval history: doing well, improving, working to increase her exercise tolerance Hospitalist Physical - Constitutional Vitals: Temp Pulse Resp BP Pulse Ox 98.3 F 74 24 134/70 96 11/26/16 08:10 11/26/16 08:10 11/26/16 08:10 11/26/16 08:10 11/26/16 08:10 General appearance: Present: no acute distress, obese (morbidly) - EENT Eyes: Present: PERRL, EOM intact. Absent: scleral icterus, conjunctival injection - Neck Neck: Present: other (large, short neck). Absent: enlarged thyroid, masses or JVD, carotid bruits - Respiratory Respiratory effort: normal (at rest) Respiratory: bilateral: diminished, wheezing (rare wheezes) - Cardiovascular Rhythm: regular Heart Sounds: Present: S1 & S2. Absent: systolic murmur - Extremities Extremities: no ischemia - Abdominal General gastrointestinal: soft, non-tender, non-distended, normal bowel sounds, other (abd obese, protuberant) - Psychiatric Psychiatric: cooperative - Neurologic Neurologic: CNII-XII intact, no focal deficits Results - Labs CBC & Chem 7: 11/22/16 05:08 11/23/16 17:41 Labs: Laboratory Last Values WBC 13.8 K/mm3 (4.5-11.0) H 11/22/16 05:08 RBC 5.28 M/mm3 (3.65-5.03) H 11/22/16 05:08 Hgb 15.4 gm/dl (10.1-14.3) H 11/22/16 05:08 Hct 48.0 % (30.3-42.9) H 11/22/16 05:08 MCV 91 fl (79-97) 11/22/16 05:08 MCH 29 pg (28-32) 11/22/16 05:08 MCHC 32 % (30-34) 11/22/16 05:08 RDW 14.9 % (13.2-15.2) 11/22/16 05:08 Plt Count 209 K/mm3 (140-440) 11/22/16 05:08 Lymph % (Auto) 13.4 % (13.4-35.0) 11/20/16 20:05 [place] % (Auto) 12.7 % (0.0-7.3) H 11/20/16 20:05 Eos % (Auto) 1.2 % (0.0-4.3) 11/20/16 20:05 Baso % (Auto) 0.6 % (0.0-1.8) 11/20/16 20:05 Lymph # 1.5 K/mm3 (1.2-5.4) 11/20/16 20:05 [place] # 1.4 K/mm3 (0.0-0.8) H 11/20/16 20:05 Eos # 0.1 K/mm3 (0.0-0.4) 11/20/16 20:05 Baso # 0.1 K/mm3 (0.0-0.1) 11/20/16 20:05 Add Manual Diff Complete 11/22/16 05:08 Total Counted 100 11/22/16 05:08 Seg Neutrophils % 72.1 % (40.0-70.0) H 11/20/16 20:05 Seg Neuts % (Manual) 75.0 % (40.0-70.0) H 11/22/16 05:08 Band Neutrophils % 14.0 % 11/22/16 05:08 Lymphocytes % (Manual) 4.0 % (13.4-35.0) L 11/22/16 05:08 Reactive Lymphs % (Man) 0 % 11/22/16 05:08 Monocytes % (Manual) 7.0 % (0.0-7.3) 11/22/16 05:08 Eosinophils % (Manual) 0 % (0.0-4.3) 11/22/16 05:08 Basophils % (Manual) 0 % (0.0-1.8) 11/22/16 05:08 Metamyelocytes % 0 % 11/22/16 05:08 Myelocytes % 0 % 11/22/16 05:08 Promyelocytes % 0 % 11/22/16 05:08 Blast Cells % 0 % 11/22/16 05:08 Nucleated RBC % Not Reportable 11/22/16 05:08 Seg Neutrophils # 7.9 K/mm3 (1.8-7.7) H 11/20/16 20:05 Seg Neutrophils # Man 10.4 K/mm3 (1.8-7.7) H 11/22/16 05:08 Band Neutrophils # 1.9 K/mm3 11/22/16 05:08 Lymphocytes # (Manual) 0.6 K/mm3 (1.2-5.4) L 11/22/16 05:08 Abs React Lymphs (Man) 0.0 K/mm3 11/22/16 05:08 Monocytes # (Manual) 1.0 K/mm3 (0.0-0.8) H 11/22/16 05:08 Eosinophils # (Manual) 0.0 K/mm3 (0.0-0.4) 11/22/16 05:08 Basophils # (Manual) 0.0 K/mm3 (0.0-0.1) 11/22/16 05:08 Metamyelocytes # 0.0 K/mm3 11/22/16 05:08 Myelocytes # 0.0 K/mm3 11/22/16 05:08 Promyelocytes # 0.0 K/mm3 11/22/16 05:08 Blast Cells # 0.0 K/mm3 11/22/16 05:08 WBC Morphology Not Reportable 11/22/16 05:08 Hypersegmented Neuts Not Reportable 11/22/16 05:08 Hyposegmented Neuts Not Reportable 11/22/16 05:08 Hypogranular Neuts Not Reportable 11/22/16 05:08 Smudge Cells Not Reportable 11/22/16 05:08 Toxic Granulation Not Reportable 11/22/16 05:08 Toxic Vacuolation Not Reportable 11/22/16 05:08 Dohle Bodies Not Reportable 11/22/16 05:08 Pelger-Huet Anomaly Not Reportable 11/22/16 05:08 Abigail Rods Not Reportable 11/22/16 05:08 Platelet Estimate Consistent w auto 11/22/16 05:08 Clumped Platelets Not Reportable 11/22/16 05:08 Plt Clumps, EDTA Not Reportable 11/22/16 05:08 Large Platelets Not Reportable 11/22/16 05:08 Giant Platelets Not Reportable 11/22/16 05:08 Platelet Satelliting Not Reportable 11/22/16 05:08 Plt Morphology Comment Not Reportable 11/22/16 05:08 RBC Morphology Not Reportable 11/22/16 05:08 Dimorphic RBCs Not Reportable 11/22/16 05:08 Polychromasia Not Reportable 11/22/16 05:08 Hypochromasia Not Reportable 11/22/16 05:08 Poikilocytosis Not Reportable 11/22/16 05:08 Anisocytosis 1+ 11/22/16 05:08 Microcytosis Not Reportable 11/22/16 05:08 Macrocytosis Not Reportable 11/22/16 05:08 Spherocytes Not Reportable 11/22/16 05:08 Pappenheimer Bodies Not Reportable 11/22/16 05:08 Sickle Cells Not Reportable 11/22/16 05:08 Target Cells Not Reportable 11/22/16 05:08 Tear Drop Cells Not Reportable 11/22/16 05:08 Ovalocytes Not Reportable 11/22/16 05:08 Helmet Cells Not Reportable 11/22/16 05:08 [place] Bodies Not Reportable 11/22/16 05:08 [place] Rings Not Reportable 11/22/16 05:08 [place] Cells Not Reportable 11/22/16 05:08 Bite Cells Not Reportable 11/22/16 05:08 Crenated Cell Not Reportable 11/22/16 05:08 Elliptocytes Not Reportable 11/22/16 05:08 Acanthocytes (Spur) Not Reportable 11/22/16 05:08 Rouleaux Not Reportable 11/22/16 05:08 Hemoglobin C Crystals Not Reportable 11/22/16 05:08 Schistocytes Not Reportable 11/22/16 05:08 Malaria parasites Not Reportable 11/22/16 05:08 Sylvain Bodies Not Reportable 11/22/16 05:08 Hem Pathologist Commnt No 11/22/16 05:08 D-Dimer 390.70 ng/mlDDU (0-234) H 11/20/16 21:00 POC ABG pH 7.313 (7.35-7.45) L 11/24/16 10:32 POC ABG pCO2 70.0 (35-45) H 11/24/16 10:32 POC ABG pO2 105 (80-105) 11/24/16 10:32 POC ABG HCO3 35.5 11/24/16 10:32 POC ABG Total CO2 38 11/24/16 10:32 POC ABG O2 Sat 97 11/24/16 10:32 POC ABG Base Excess 9 11/24/16 10:32 FiO2 40 % 11/24/16 10:32 Sodium 136 mmol/L (137-145) L 11/23/16 17:41 Potassium 4.7 mmol/L (3.6-5.0) 11/23/16 17:41 Chloride 94.0 mmol/L (98-107) L 11/23/16 17:41 Carbon Dioxide 29 mmol/L (22-30) 11/23/16 17:41 Anion Gap 18 mmol/L 11/23/16 17:41 BUN 27 mg/dL (7-17) H 11/23/16 17:41 Creatinine 0.5 mg/dL (0.7-1.2) L 11/23/16 17:41 Estimated GFR > 60 ml/min 11/23/16 17:41 BUN/Creatinine Ratio 54.00 % 11/23/16 17:41 Glucose 122 mg/dL (65-100) H 11/23/16 17:41 POC Glucose 132 (70-105) H 11/23/16 23:54 Calcium 8.5 mg/dL (8.4-10.2) 11/23/16 17:41 Magnesium 2.2 mg/dL (1.7-2.3) 11/20/16 20:05 Total Bilirubin 0.5 mg/dL (0.1-1.2) 11/23/16 17:41 AST 92 units/L (5-40) H 11/23/16 17:41 ALT 45 units/L (7-56) 11/23/16 17:41 Alkaline Phosphatase 87 units/L (35-129) 11/23/16 17:41 Total Creatine Kinase 523 units/L (30-135) H 11/21/16 09:00 CK-MB (CK-2) 6.6 ng/mL (0.0-4.0) H 11/21/16 09:00 CK-MB (CK-2) Rel Index 1.2 (0-4) 11/21/16 09:00 Troponin T < 0.010 ng/mL (0.00-0.029) 11/21/16 09:00 NT-Pro-B Natriuret Pep 1872 pg/mL (0-900) H 11/20/16 20:05 Total Protein 6.3 g/dL (6.3-8.2) 11/23/16 17:41 Albumin 3.4 g/dL (3.9-5) L 11/23/16 17:41 Albumin/Globulin Ratio 1.2 % 11/23/16 17:41
--- NOTE | 2016-11-26 16:04 | Progress Note ---
Assessment and Plan 51 y/o female with known COPD, BRENDA, and noncompliance, admitted with acute on chronic hypercapnic respiratory failure. 1. Continue 40q8 dosing of steroid. Can start to wean more tomorrow 2. Suggest checking chemistry. Likely will need more lasix either later tomorrow. 3. Pulmicort and brovana BID, continue 4. CC diet, low Na and limited calories 5. Bipap ordered for QHS and PRN basis. 6. Encouraged OOB to chair and mobilization 7. Weightloss Subjective Date of service: 11/26/16 Interval history: No acute events. Successful transition out of unit. Objective Vital Signs - 12hr 11/26/16 11/26/16 11/26/16 04:42 04:53 08:10 Temperature 98.3 F Pulse Rate [ 74 Right Dorsalis Pedis] Pulse Rate [ 74 72 Throughout] Respiratory 24 Rate Respiratory 18 18 Rate [ Throughout] Blood Pressure 134/70 [Left Arm] O2 Sat by Pulse 96 Oximetry 11/26/16 10:00 Temperature Pulse Rate [ Right Dorsalis Pedis] Pulse Rate [ Throughout] Respiratory Rate Respiratory Rate [ Throughout] Blood Pressure [Left Arm] O2 Sat by Pulse 96 Oximetry Constitutional: alert, other (morbidly obese) Neck: supple Effort: normal Ascultation: Bilateral: wheezes Percussion: Bilateral: not dull Cardiovascular: regular rate and rhythm Gastrointestinal: normoactive bowel sounds Extremities: no edema Neurologic: unable to assess CBC and BMP: 11/22/16 05:08 11/23/16 17:41 ABG, PT/INR, D-dimer: ABG POC ABG pH 7.313 (7.35-7.45) L 11/24/16 10:32 POC ABG pCO2 70.0 (35-45) H 11/24/16 10:32 POC ABG pO2 105 (80-105) 11/24/16 10:32 POC ABG HCO3 35.5 11/24/16 10:32 POC ABG Total CO2 38 11/24/16 10:32 POC ABG O2 Sat 97 11/24/16 10:32 PT/INR, D-dimer D-Dimer 390.70 ng/mlDDU (0-234) H 11/20/16 21:00 Abnormal lab findings: Abnormal Labs 11/21/16 11/21/16 11/21/16 02:41 09:00 13:10 WBC RBC Hgb Hct Seg Neuts % (Manual) Lymphocytes % (Manual) Seg Neutrophils # Man Lymphocytes # (Manual) Monocytes # (Manual) POC ABG pH 7.290 L POC ABG pCO2 67.4 H 57.5 H POC ABG pO2 67 L 62 L Sodium Chloride BUN Creatinine Glucose POC Glucose Calcium AST Total Creatine Kinase 523 H CK-MB (CK-2) 6.6 H Albumin 11/22/16 11/22/16 11/22/16 05:08 05:08 05:18 WBC 13.8 H RBC 5.28 H Hgb 15.4 H Hct 48.0 H Seg Neuts % (Manual) 75.0 H Lymphocytes % (Manual) 4.0 L Seg Neutrophils # Man 10.4 H Lymphocytes # (Manual) 0.6 L Monocytes # (Manual) 1.0 H POC ABG pH POC ABG pCO2 55.7 H POC ABG pO2 65 L Sodium Chloride 96.9 L BUN 19 H Creatinine 0.5 L Glucose 151 H POC Glucose Calcium 8.2 L AST Total Creatine Kinase CK-MB (CK-2) Albumin 11/23/16 11/23/16 11/23/16 05:17 17:41 23:54 WBC RBC Hgb Hct Seg Neuts % (Manual) Lymphocytes % (Manual) Seg Neutrophils # Man Lymphocytes # (Manual) Monocytes # (Manual) POC ABG pH 7.475 H POC ABG pCO2 49.9 H POC ABG pO2 72 L Sodium 136 L Chloride 94.0 L BUN 27 H Creatinine 0.5 L Glucose 122 H POC Glucose 132 H Calcium AST 92 H Total Creatine Kinase CK-MB (CK-2) Albumin 3.4 L 11/24/16 11/24/16 05:27 10:32 WBC RBC Hgb Hct Seg Neuts % (Manual) Lymphocytes % (Manual) Seg Neutrophils # Man Lymphocytes # (Manual) Monocytes # (Manual) POC ABG pH 7.313 L POC ABG pCO2 59.1 H 70.0 H POC ABG pO2 Sodium Chloride BUN Creatinine Glucose POC Glucose Calcium AST Total Creatine Kinase CK-MB (CK-2) Albumin
[2016-11-27] MEDS: DUONEB 0.5 MG-3 MG/3 ML SOLN IH SCH ×6 (03:08→23:44)
[2016-11-27] MEDS: BROVANA NEBU IH SCH ×2 (08:38→19:54)
[2016-11-27] MEDS: PULMICORT IH SCH ×2 (08:38→19:54)
[2016-11-27 08:51] LABS: Anion Gap 13 mmol/L; Blood Urea Nitrogen 24 mg/dL (7-17); Calcium 8.8 mg/dL (8.4-10.2); Carbon Dioxide 35 mmol/L (22-30); Chloride 96.2 mmol/L (98-107); Glucose 116 mg/dL (65-100); Potassium 4.7 mmol/L (3.6-5.0); Sodium 139 mmol/L (137-145)
[2016-11-27] MEDS: ATIVAN IV PRN ×2 (09:17→19:52)
[2016-11-27] MEDS: LOVENOX SUB-Q SCH (09:18)
[2016-11-27] MEDS: PEPCID PO SCH ×2 (09:19→22:04)
--- NOTE | 2016-11-27 12:39 | Progress Note ---
Assessment and Plan Assessment and plan: Patient is a 51 y/o morbid obese woman with a history of COPD, BRENDA, and noncompliance, admitted with acute on chronic hypercapnic respiratory failure. 1. Acute hypoxic hypercapnic respiratory failure Extubated 11/24 BiPAP QHS and as needed per pulmonary recommendation 2. COPD exacerbation that required intubation Continue IV corticosteroids along with inhaled bronchodilators, incentive spirometry, chest PT Decreaase dose of CS today, plan to switch to po tomorrow Improving 3. Morbid obesity and likely BRENDA/OHS, BMI 50.2 May benefit from weight loss surgery and outpatient pulmonary follow-up for sleep study/NIPPV 4. Leukocytosis Secondary to corticosteroid use 5. Hyperglycemia Secondary to corticosteroid use 6. DVT prophylaxis Lovenox per pulDr. Juan jimenez: "1. Continue 40q8 dosing of steroid. Can start to wean more tomorrow 2. Suggest checking chemistry. Likely will need more lasix either later tomorrow. 3. Pulmicort and brovana BID, continue 4. CC diet, low Na and limited calories 5. Bipap ordered for QHS and PRN basis. 6. Encouraged OOB to chair and mobilization 7. Weightloss" Disposition: Patient main problem is that her oxygen was taken weight she lost her insurance now she's back on Medicaid and she needs oxygen for home. She also needs a CPAP but she has not undergone a sleep study as ordered. We discussed lifestyle modification. We discussed compliance. Patient voiced understanding and agreement and states she would do better. Start weaning the steroids today and anticipate discharge tomorrow once oxygen is arranged. History Interval history: Patient seen and examined. Follow up on shortness of breath which still present. Patient on 3 L oxygen nasal cannula. Overnight uneventful. No cp, sob , n/v or severe headaches. Imaging, old records, testing, labs, nursing notes reviewed. Plan discussed with patient. Hospitalist Physical - Physical exam Narrative exam: GEN: WDWN, BMI 50.2 NAD, AWAKE, ALERT, ORIENTATED 3 HEENT: NCAT, PERRL, EOMI, OP CLEAR NECK: SUPPLE, NO THYROMEGALY, NO JVD, NO LAD CVS: RRR, NORMAL S1S2 LUNGS/CHEST: Rhonchi bilaterally NORMAL CHEST EXPANSION B, GOOD AIR ENTRY B ABD: SOFT NTND, GBS, NO REBOUND OR GUARDING EXT/SKIN: NO SIGNIFICANT EDEMA OR RASH MSK: FROM X 4 EXTREMITIES NEURO: CN 2-12 GROSSLY INTACT, NO new FOCAL DEFICITS PSY: CALM - Constitutional Vitals: Temp Pulse Resp BP Pulse Ox 98.3 F 73 20 138/84 96 11/27/16 08:00 11/27/16 11:47 11/27/16 11:47 11/27/16 08:00 11/27/16 08:51 General appearance: Present: no acute distress, obese (morbid) Results - Labs CBC & Chem 7: 11/22/16 05:08 11/27/16 07:49 Labs: Laboratory Last Values WBC 13.8 K/mm3 (4.5-11.0) H 11/22/16 05:08 RBC 5.28 M/mm3 (3.65-5.03) H 11/22/16 05:08 Hgb 15.4 gm/dl (10.1-14.3) H 11/22/16 05:08 Hct 48.0 % (30.3-42.9) H 11/22/16 05:08 MCV 91 fl (79-97) 11/22/16 05:08 MCH 29 pg (28-32) 11/22/16 05:08 MCHC 32 % (30-34) 11/22/16 05:08 RDW 14.9 % (13.2-15.2) 11/22/16 05:08 Plt Count 209 K/mm3 (140-440) 11/22/16 05:08 Lymph % (Auto) 13.4 % (13.4-35.0) 11/20/16 20:05 Bucks % (Auto) 12.7 % (0.0-7.3) H 11/20/16 20:05 Eos % (Auto) 1.2 % (0.0-4.3) 11/20/16 20:05 Baso % (Auto) 0.6 % (0.0-1.8) 11/20/16 20:05 Lymph # 1.5 K/mm3 (1.2-5.4) 11/20/16 20:05 Bucks # 1.4 K/mm3 (0.0-0.8) H 11/20/16 20:05 Eos # 0.1 K/mm3 (0.0-0.4) 11/20/16 20:05 Baso # 0.1 K/mm3 (0.0-0.1) 11/20/16 20:05 Add Manual Diff Complete 11/22/16 05:08 Total Counted 100 11/22/16 05:08 Seg Neutrophils % 72.1 % (40.0-70.0) H 11/20/16 20:05 Seg Neuts % (Manual) 75.0 % (40.0-70.0) H 11/22/16 05:08 Band Neutrophils % 14.0 % 11/22/16 05:08 Lymphocytes % (Manual) 4.0 % (13.4-35.0) L 11/22/16 05:08 Reactive Lymphs % (Man) 0 % 11/22/16 05:08 Monocytes % (Manual) 7.0 % (0.0-7.3) 11/22/16 05:08 Eosinophils % (Manual) 0 % (0.0-4.3) 11/22/16 05:08 Basophils % (Manual) 0 % (0.0-1.8) 11/22/16 05:08 Metamyelocytes % 0 % 11/22/16 05:08 Myelocytes % 0 % 11/22/16 05:08 Promyelocytes % 0 % 11/22/16 05:08 Blast Cells % 0 % 11/22/16 05:08 Nucleated RBC % Not Reportable 11/22/16 05:08 Seg Neutrophils # 7.9 K/mm3 (1.8-7.7) H 11/20/16 20:05 Seg Neutrophils # Man 10.4 K/mm3 (1.8-7.7) H 11/22/16 05:08 Band Neutrophils # 1.9 K/mm3 11/22/16 05:08 Lymphocytes # (Manual) 0.6 K/mm3 (1.2-5.4) L 11/22/16 05:08 Abs React Lymphs (Man) 0.0 K/mm3 11/22/16 05:08 Monocytes # (Manual) 1.0 K/mm3 (0.0-0.8) H 11/22/16 05:08 Eosinophils # (Manual) 0.0 K/mm3 (0.0-0.4) 11/22/16 05:08 Basophils # (Manual) 0.0 K/mm3 (0.0-0.1) 11/22/16 05:08 Metamyelocytes # 0.0 K/mm3 11/22/16 05:08 Myelocytes # 0.0 K/mm3 11/22/16 05:08 Promyelocytes # 0.0 K/mm3 11/22/16 05:08 Blast Cells # 0.0 K/mm3 11/22/16 05:08 WBC Morphology Not Reportable 11/22/16 05:08 Hypersegmented Neuts Not Reportable 11/22/16 05:08 Hyposegmented Neuts Not Reportable 11/22/16 05:08 Hypogranular Neuts Not Reportable 11/22/16 05:08 Smudge Cells Not Reportable 11/22/16 05:08 Toxic Granulation Not Reportable 11/22/16 05:08 Toxic Vacuolation Not Reportable 11/22/16 05:08 Dohle Bodies Not Reportable 11/22/16 05:08 Pelger-Huet Anomaly Not Reportable 11/22/16 05:08 Abigail Rods Not Reportable 11/22/16 05:08 Platelet Estimate Consistent w auto 11/22/16 05:08 Clumped Platelets Not Reportable 11/22/16 05:08 Plt Clumps, EDTA Not Reportable 11/22/16 05:08 Large Platelets Not Reportable 11/22/16 05:08 Giant Platelets Not Reportable 11/22/16 05:08 Platelet Satelliting Not Reportable 11/22/16 05:08 Plt Morphology Comment Not Reportable 11/22/16 05:08 RBC Morphology Not Reportable 11/22/16 05:08 Dimorphic RBCs Not Reportable 11/22/16 05:08 Polychromasia Not Reportable 11/22/16 05:08 Hypochromasia Not Reportable 11/22/16 05:08 Poikilocytosis Not Reportable 11/22/16 05:08 Anisocytosis 1+ 11/22/16 05:08 Microcytosis Not Reportable 11/22/16 05:08 Macrocytosis Not Reportable 11/22/16 05:08 Spherocytes Not Reportable 11/22/16 05:08 Pappenheimer Bodies Not Reportable 11/22/16 05:08 Sickle Cells Not Reportable 11/22/16 05:08 Target Cells Not Reportable 11/22/16 05:08 Tear Drop Cells Not Reportable 11/22/16 05:08 Ovalocytes Not Reportable 11/22/16 05:08 Helmet Cells Not Reportable 11/22/16 05:08 [place] Bodies Not Reportable 11/22/16 05:08 [place] Rings Not Reportable 11/22/16 05:08 [place] Cells Not Reportable 11/22/16 05:08 Bite Cells Not Reportable 11/22/16 05:08 Crenated Cell Not Reportable 11/22/16 05:08 Elliptocytes Not Reportable 11/22/16 05:08 Acanthocytes (Spur) Not Reportable 11/22/16 05:08 Rouleaux Not Reportable 11/22/16 05:08 Hemoglobin C Crystals Not Reportable 11/22/16 05:08 Schistocytes Not Reportable 11/22/16 05:08 Malaria parasites Not Reportable 11/22/16 05:08 Sylvain Bodies Not Reportable 11/22/16 05:08 Hem Pathologist Commnt No 11/22/16 05:08 D-Dimer 390.70 ng/mlDDU (0-234) H 11/20/16 21:00 POC ABG pH 7.313 (7.35-7.45) L 11/24/16 10:32 POC ABG pCO2 70.0 (35-45) H 11/24/16 10:32 POC ABG pO2 105 (80-105) 11/24/16 10:32 POC ABG HCO3 35.5 11/24/16 10:32 POC ABG Total CO2 38 11/24/16 10:32 POC ABG O2 Sat 97 11/24/16 10:32 POC ABG Base Excess 9 11/24/16 10:32 FiO2 40 % 11/24/16 10:32 Sodium 139 mmol/L (137-145) 11/27/16 07:49 Potassium 4.7 mmol/L (3.6-5.0) 11/27/16 07:49 Chloride 96.2 mmol/L (98-107) L 11/27/16 07:49 Carbon Dioxide 35 mmol/L (22-30) H 11/27/16 07:49 Anion Gap 13 mmol/L 11/27/16 07:49 BUN 24 mg/dL (7-17) H 11/27/16 07:49 Creatinine 0.4 mg/dL (0.7-1.2) L 11/27/16 07:49 Estimated GFR > 60 ml/min 11/27/16 07:49 BUN/Creatinine Ratio 60.00 % 11/27/16 07:49 Glucose 116 mg/dL (65-100) H 11/27/16 07:49 POC Glucose 132 (70-105) H 11/23/16 23:54 Calcium 8.8 mg/dL (8.4-10.2) 11/27/16 07:49 Magnesium 2.2 mg/dL (1.7-2.3) 11/20/16 20:05 Total Bilirubin 0.5 mg/dL (0.1-1.2) 11/23/16 17:41 AST 92 units/L (5-40) H 11/23/16 17:41 ALT 45 units/L (7-56) 11/23/16 17:41 Alkaline Phosphatase 87 units/L (35-129) 11/23/16 17:41 Total Creatine Kinase 523 units/L (30-135) H 11/21/16 09:00 CK-MB (CK-2) 6.6 ng/mL (0.0-4.0) H 11/21/16 09:00 CK-MB (CK-2) Rel Index 1.2 (0-4) 11/21/16 09:00 Troponin T < 0.010 ng/mL (0.00-0.029) 11/21/16 09:00 NT-Pro-B Natriuret Pep 1872 pg/mL (0-900) H 11/20/16 20:05 Total Protein 6.3 g/dL (6.3-8.2) 11/23/16 17:41 Albumin 3.4 g/dL (3.9-5) L 11/23/16 17:41 Albumin/Globulin Ratio 1.2 % 11/23/16 17:41
[2016-11-27] MEDS ORDERED: LASIX IV ONE (16:09)
--- NOTE | 2016-11-27 16:14 | Progress Note ---
Assessment and Plan Imp: 1. BRENDA/OHS/Morbid obesity 2. COPD exac. 3. A/C respiratory failure, hypoxia/hypercapnea Rec: 1. Cont. Bronchodilators/Solumedrol 2. Echo-2D and repeat BNP; give Lasix 40mg IV once 3. BIPAP QHS/PRN; repeat ABG; may qualify for home Trilogy 4. Weight loss 5. Try to mobilize 6. Outpatient PFTs Plan of care reviewed w/ patient, she understands/agrees No family present Subjective Date of service: 11/27/16 Principal diagnosis: A/C respiratory failure Interval history: No events. Awake, alert. C/o SOB and wheezing. No sputum, chest pain, hemoptysis. Active Medications Acetaminophen (Tylenol) 650 mg IA Q6H PRN PRN Reason: Pain MILD(1-3)/Fever >100.5/BONE Acetaminophen (Tylenol) 650 mg PO Q6H PRN PRN Reason: Pain Al Hydrox/Mg Hydrox/Simethicone (Alum-Mag Hydrox-Simeth 585-321-70np/5ml) 30 ml PO Q4H PRN PRN Reason: Indigestion Albuterol/Ipratropium (Duoneb 0.5 Mg-3 Mg/3 Ml Soln) 1 ampul IH Q4HRT [facility] Last Admin: 11/27/16 11:38 Dose: 1 ampul Arformoterol Tartrate (Brovana Nebu) 15 mcg IH Q12HRT [facility] Last Admin: 11/27/16 08:38 Dose: Not Given Bisacodyl (Dulcolax) 10 mg IA QDAY PRN PRN Reason: constipation unrelieved by MOM Budesonide (Pulmicort) 0.5 mg IH Q12HRT [facility] Last Admin: 11/27/16 08:38 Dose: 0.5 mg Enoxaparin Sodium (Lovenox) 40 mg SUB-Q QDAY [facility] Last Admin: 11/27/16 09:18 Dose: 40 mg Famotidine (Pepcid) 20 mg PO BID [facility] Last Admin: 11/27/16 09:19 Dose: 20 mg Furosemide (Lasix) 40 mg IV ONCE ONE Stop: 11/27/16 16:10 Hydrophilic Ointment (Vaseline Lip Therapy) 1 applic TP Q2HR PRN PRN Reason: Dry Lips Lorazepam (Ativan) 0.5 mg IV Q4H PRN PRN Reason: Anxiety Last Admin: 11/27/16 09:17 Dose: 0.5 mg Magnesium Hydroxide (Milk Of Magnesia) 30 ml PO Q4H PRN PRN Reason: Constipation Methylprednisolone Sodium Succinate (Solu-Medrol) 40 mg IV Q8HR [facility] Last Admin: 11/27/16 05:38 Dose: 40 mg Multi-Ingred Cream/Lotion/Oil/Oint (Artificial Tears Ophth Oint) 1 applic OU Q4H PRN PRN Reason: Dry Eye(s) Ondansetron HCl (Zofran) 4 mg IV Q8H PRN PRN Reason: N/V unrelieved by Isidro Last Admin: 11/24/16 15:24 Dose: 4 mg Simple Syrup (Simple Syrup) 15 ml FEEDTUBE PRN PRN PRN Reason: Hypoglycemia Simple Syrup (Simple Syrup) 30 ml FEEDTUBE PRN PRN PRN Reason: Hypoglycemia Sodium Bicarbonate (Sodium Bicarbonate) 325 mg FEEDTUBE PRN PRN PRN Reason: For Clogged Feeding Tube Objective Vital Signs - 12hr 11/27/16 11/27/16 11/27/16 08:00 08:38 08:50 Temperature 98.3 F Pulse Rate [ 76 Right Dorsalis Pedis] Pulse Rate [ 72 69 Throughout] Respiratory 18 Rate Respiratory 20 20 Rate [ Throughout] Blood Pressure 138/84 [Left Arm] O2 Sat by Pulse 96 Oximetry 11/27/16 11/27/16 11/27/16 08:51 11:39 11:47 Temperature Pulse Rate [ Right Dorsalis Pedis] Pulse Rate [ 72 73 Throughout] Respiratory Rate Respiratory 20 20 Rate [ Throughout] Blood Pressure [Left Arm] O2 Sat by Pulse 96 Oximetry Constitutional: alert, other (morbidly obese) ENT: oropharynx moist Neck: supple Effort: normal Ascultation: Bilateral: wheezes, rhonchi Cardiovascular: regular rate and rhythm (no mrg) Gastrointestinal: normoactive bowel sounds, soft, non-tender, non-distended Integumentary: normal Extremities: no cyanosis, no edema, pink and warm Neurologic: normal mental status, non-focal exam, pupils equal and round, CN II- XII normal Psychiatric: mood appropriate, affect normal CBC and BMP: 11/22/16 05:08 11/27/16 07:49 ABG, PT/INR, D-dimer: ABG POC ABG pH 7.313 (7.35-7.45) L 11/24/16 10:32 POC ABG pCO2 70.0 (35-45) H 11/24/16 10:32 POC ABG pO2 105 (80-105) 11/24/16 10:32 POC ABG HCO3 35.5 11/24/16 10:32 POC ABG Total CO2 38 11/24/16 10:32 POC ABG O2 Sat 97 11/24/16 10:32 PT/INR, D-dimer D-Dimer 390.70 ng/mlDDU (0-234) H 11/20/16 21:00 Abnormal lab findings: Abnormal Labs 11/21/16 11/21/16 11/21/16 02:41 09:00 13:10 WBC RBC Hgb Hct Seg Neuts % (Manual) Lymphocytes % (Manual) Seg Neutrophils # Man Lymphocytes # (Manual) Monocytes # (Manual) POC ABG pH 7.290 L POC ABG pCO2 67.4 H 57.5 H POC ABG pO2 67 L 62 L Sodium Chloride Carbon Dioxide BUN Creatinine Glucose POC Glucose Calcium AST Total Creatine Kinase 523 H CK-MB (CK-2) 6.6 H Albumin 11/22/16 11/22/16 11/22/16 05:08 05:08 05:18 WBC 13.8 H RBC 5.28 H Hgb 15.4 H Hct 48.0 H Seg Neuts % (Manual) 75.0 H Lymphocytes % (Manual) 4.0 L Seg Neutrophils # Man 10.4 H Lymphocytes # (Manual) 0.6 L Monocytes # (Manual) 1.0 H POC ABG pH POC ABG pCO2 55.7 H POC ABG pO2 65 L Sodium Chloride 96.9 L Carbon Dioxide BUN 19 H Creatinine 0.5 L Glucose 151 H POC Glucose Calcium 8.2 L AST Total Creatine Kinase CK-MB (CK-2) Albumin 11/23/16 11/23/16 11/23/16 05:17 17:41 23:54 WBC RBC Hgb Hct Seg Neuts % (Manual) Lymphocytes % (Manual) Seg Neutrophils # Man Lymphocytes # (Manual) Monocytes # (Manual) POC ABG pH 7.475 H POC ABG pCO2 49.9 H POC ABG pO2 72 L Sodium 136 L Chloride 94.0 L Carbon Dioxide BUN 27 H Creatinine 0.5 L Glucose 122 H POC Glucose 132 H Calcium AST 92 H Total Creatine Kinase CK-MB (CK-2) Albumin 3.4 L 11/24/16 11/24/16 11/27/16 05:27 10:32 07:49 WBC RBC Hgb Hct Seg Neuts % (Manual) Lymphocytes % (Manual) Seg Neutrophils # Man Lymphocytes # (Manual) Monocytes # (Manual) POC ABG pH 7.313 L POC ABG pCO2 59.1 H 70.0 H POC ABG pO2 Sodium Chloride 96.2 L Carbon Dioxide 35 H BUN 24 H Creatinine 0.4 L Glucose 116 H POC Glucose Calcium AST Total Creatine Kinase CK-MB (CK-2) Albumin Chest x-ray: report reviewed, image reviewed
[2016-11-27 17:22] LABS: ISTAT Base Excess 15; ISTAT HCO3 38.9; ISTAT PCO2 58.4 (35-45); ISTAT PH 7.431 (7.35-7.45); ISTAT PO2 81 (80-105); ISTAT SO2 96; ISTAT TCO2 41
[2016-11-28] MEDS: ATIVAN IV PRN
[2016-11-28] MEDS ORDERED: ROBITUSSIN DM PO PRN (03:29)
[2016-11-28] MEDS: DUONEB 0.5 MG-3 MG/3 ML SOLN IH SCH ×4 (03:54→20:49)
[2016-11-28 06:21] LABS: Hematocrit 52.9 % (30.3-42.9); Hemoglobin 16.7 gm/dl (10.1-14.3); Mean Corpuscular HGB Conc 32 % (30-34); Mean Corpuscular Hemoglobin 29 pg (28-32); Mean Corpuscular Volume 92 fl (79-97); Platelet Count 195 K/mm3 (140-440); Red Blood Count 5.78 M/mm3 (3.65-5.03); Red Cell Distribution Width 15.1 % (13.2-15.2); White Blood Count 14.7 K/mm3 (4.5-11.0)
[2016-11-28 06:31] LABS: Anion Gap 15 mmol/L; Blood Urea Nitrogen 24 mg/dL (7-17); Carbon Dioxide 35 mmol/L (22-30); Chloride 95.1 mmol/L (98-107); Glucose 139 mg/dL (65-100); Potassium 4.7 mmol/L (3.6-5.0); Sodium 140 mmol/L (137-145)
[2016-11-28] MEDS: PULMICORT IH SCH (08:26)
[2016-11-28] MEDS: BROVANA NEBU IH SCH (08:27)
--- NOTE | 2016-11-28 10:34 | Discharge Summary ---
Providers - Providers Date of Admission: 11/21/16 01:13 Date of discharge: 11/28/16 Attending physician: WALLY AVERY 11/26/16 07:53 Consult to Wound/ET Nurse [CONS] Routine Reason For Exam: wound eval Primary care physician: PROVIDER SERVICE REPRESENTATIVE Hospitalization Reason for admission: acute hypercapneic respiratory failure Condition: Stable Pertinent studies: Chest x-ray showed mild cardiomegaly and improvement in previously seen asymmetric right lung hazy air space opacities, chest CTA showed no central pulmonary embolism or other acute chest finding, repeat chest x-ray showed enlarged heart, pulmonary vascular congestion, suboptimal inspiration, bilateral pulmonary edema, repeat chest x-ray showed CHF with probable mild improvement, abdominal x-ray showed satisfactory position of nasogastric tube, repeat chest x-ray showed left atelectasis or left pleural effusion and/or pneumonia Procedures: None Hospital course: The patient is a 51-year-old morbidly obese lady who has a history of COPD, obstructive sleep apnea and noncompliance presented emergency department with shortness of breath. Carbon dioxide level was elevated on ABG on admission to . Was placed on BiPAP and repeat aerosolized bronchodilators. Came lethargic and minimally responsive. Was intubated and admitted to the ICU. Commenced on IV Solu-Medrol. Brovana and Pulmicort. Progressively improved. Was extubated. Placed on BiPAP. Transferred to the floor. Has continually been doing well. Is therefore being discharged today to follow primary care physician as well as high operating room scheduler. Counseling noncompliance with follow- up and medication was done Disposition: DISCHARGED TO HOME OR SELFCARE Core Measure Documentation - Palliative Care Palliative Care/ Comfort Measures: Not Applicable - Core Measures Any of the following diagnoses?: none Exam - Constitutional Vitals: Temp Pulse Resp BP Pulse Ox 97.7 F 69 20 119/75 96 11/28/16 08:00 11/28/16 08:41 11/28/16 08:41 11/28/16 08:00 11/28/16 08:33 General appearance: Present: no acute distress, well-nourished - EENT Eyes: Present: PERRL ENT: hearing intact, clear oral mucosa - Neck Neck: Present: supple, normal ROM - Respiratory Respiratory effort: normal Respiratory: bilateral: CTA - Cardiovascular Heart Sounds: Present: S1 & S2. Absent: rub, click - Extremities Extremities: pulses symmetrical, No edema Peripheral Pulses: within normal limits - Abdominal General gastrointestinal: Present: soft, non-tender, non-distended, normal bowel sounds Female genitourinary: Present: normal - Integumentary Integumentary: Present: clear, warm, dry - Musculoskeletal Musculoskeletal: gait normal, strength equal bilaterally - Psychiatric Psychiatric: appropriate mood/affect, intact judgment & insight - Neurologic Neurologic: CNII-XII intact, moves all extremities Plan Activity: advance as tolerated Diet: regular Follow up with: PRIMARY CARE,MD [Primary Care Provider] - 3-5 Days Prescriptions: Albuterol Sulfate [Ventolin HFA] 2 puff IH Q4H PRN #1 [email or web address] PRN Reason: Shortness Of Breath Gabapentin [Neurontin] 100 mg PO Q8HR #90 capsule HYDROcodone/APAP 5-325 [Stanley 5-325 mg TAB] 1 each PO Q6HR PRN #30 tablet PRN Reason: Pain LORazepam [Ativan] 1 mg PO QHS #30 tab
[2016-11-28] MEDS: LOVENOX SUB-Q SCH (10:44)
[2016-11-28] MEDS: PEPCID PO SCH (10:45)
[2016-11-28] MEDS: PERCOCET 5/325 PO PRN ×2 (10:45→16:26)
--- NOTE | 2016-11-28 14:03 | Progress Note ---
Assessment and Plan Imp: 1. BRENDA/OHS/Morbid obesity 2. COPD exac. 3. A/C respiratory failure, hypoxia/hypercapnea Rec: 1. Cont. Bronchodilators; taper Solumedrol; Prednisone taper at d/c 2. Echo-2D pending; should resume home PO Lasix dose at d/c 3. Weight loss 4. Try to mobilize 5. Outpatient PFTs 6. Needs home O2 7. Recommend home Trilogy unit; order placed with case liner *The patient's respiratory system is severely impaired. She requires volume assured pressure support ventilator. The severity of her condition is life threatening and has progressed. Recommending NIV to help prevent hospital re- admissions and improve quality of life. Plan of care reviewed w/ patient, she understands/agrees No family present Subjective Date of service: 11/28/16 Principal diagnosis: A/C respiratory failure Interval history: No events. Awake, alert. SOB and wheezing better after dose of Lasix. No sputum , chest pain, hemoptysis. Active Medications Acetaminophen (Tylenol) 650 mg IN Q6H PRN PRN Reason: Pain MILD(1-3)/Fever >100.5/BONE Acetaminophen (Tylenol) 650 mg PO Q6H PRN PRN Reason: Pain Al Hydrox/Mg Hydrox/Simethicone (Alum-Mag Hydrox-Simeth [phone]/5ml) 30 ml PO Q4H PRN PRN Reason: Indigestion Albuterol/Ipratropium (Duoneb 0.5 Mg-3 Mg/3 Ml Soln) 1 ampul IH Q6HRT [facility] Arformoterol Tartrate (Brovana Nebu) 15 mcg IH Q12HRT [facility] Bisacodyl (Dulcolax) 10 mg IN QDAY PRN PRN Reason: constipation unrelieved by MOM Budesonide (Pulmicort) 0.5 mg IH Q12HRT [facility] Enoxaparin Sodium (Lovenox) 40 mg SUB-Q QDAY [facility] Last Admin: 11/28/16 10:44 Dose: 40 mg Famotidine (Pepcid) 20 mg PO BID [facility] Last Admin: 11/28/16 10:45 Dose: 20 mg Guaifenesin (Robitussin Dm) 10 ml PO Q4H PRN PRN Reason: Cough Last Admin: 11/28/16 06:03 Dose: 10 ml Hydrophilic Ointment (Vaseline Lip Therapy) 1 applic TP Q2HR PRN PRN Reason: Dry Lips Lorazepam (Ativan) 0.5 mg IV Q4H PRN PRN Reason: Anxiety Last Admin: 11/28/16 00:00 Dose: 0.5 mg Magnesium Hydroxide (Milk Of Magnesia) 30 ml PO Q4H PRN PRN Reason: Constipation Methylprednisolone Sodium Succinate (Solu-Medrol) 40 mg IV Q8HR [facility] Last Admin: 11/28/16 05:59 Dose: 40 mg Multi-Ingred Cream/Lotion/Oil/Oint (Artificial Tears Ophth Oint) 1 applic OU Q4H PRN PRN Reason: Dry Eye(s) Ondansetron HCl (Zofran) 4 mg IV Q8H PRN PRN Reason: N/V unrelieved by Isidro Last Admin: 11/24/16 15:24 Dose: 4 mg Oxycodone/Acetaminophen (Percocet 5/325) 1 tab PO Q4H PRN PRN Reason: Pain, Moderate (4-6) Last Admin: 11/28/16 10:45 Dose: 1 tab Simple Syrup (Simple Syrup) 15 ml FEEDTUBE PRN PRN PRN Reason: Hypoglycemia Simple Syrup (Simple Syrup) 30 ml FEEDTUBE PRN PRN PRN Reason: Hypoglycemia Sodium Bicarbonate (Sodium Bicarbonate) 325 mg FEEDTUBE PRN PRN PRN Reason: For Clogged Feeding Tube Objective Vital Signs - 12hr 11/28/16 11/28/16 11/28/16 03:54 04:59 08:00 Temperature 97.7 F Pulse Rate [ 90 Apical] Pulse Rate [ 74 76 Throughout] Respiratory 20 Rate Respiratory 18 18 Rate [ Throughout] Blood Pressure 119/75 [Left Arm] O2 Sat by Pulse 90 Oximetry 11/28/16 11/28/16 11/28/16 08:26 08:27 08:33 Temperature Pulse Rate [ Apical] Pulse Rate [ 67 Throughout] Respiratory Rate Respiratory 20 Rate [ Throughout] Blood Pressure [Left Arm] O2 Sat by Pulse 96 96 Oximetry 11/28/16 08:41 Temperature Pulse Rate [ Apical] Pulse Rate [ 69 Throughout] Respiratory Rate Respiratory 20 Rate [ Throughout] Blood Pressure [Left Arm] O2 Sat by Pulse Oximetry Constitutional: alert, other (morbidly obese) ENT: oropharynx moist Neck: supple Effort: normal Ascultation: Bilateral: diminished breath sounds Cardiovascular: regular rate and rhythm (no mrg) Gastrointestinal: normoactive bowel sounds, soft, non-tender, non-distended Integumentary: normal Extremities: no cyanosis, no edema, pink and warm Neurologic: normal mental status, non-focal exam, pupils equal and round, CN II- XII normal Psychiatric: mood appropriate, affect normal CBC and BMP: 11/28/16 05:42 11/28/16 05:42 ABG, PT/INR, D-dimer: ABG POC ABG pH 7.431 (7.35-7.45) 11/27/16 17:04 POC ABG pCO2 58.4 (35-45) H 11/27/16 17:04 POC ABG pO2 81 (80-105) 11/27/16 17:04 POC ABG HCO3 38.9 11/27/16 17:04 POC ABG Total CO2 41 11/27/16 17:04 POC ABG O2 Sat 96 11/27/16 17:04 PT/INR, D-dimer D-Dimer 390.70 ng/mlDDU (0-234) H 11/20/16 21:00 Abnormal lab findings: Abnormal Labs 11/21/16 11/21/16 11/21/16 02:41 09:00 13:10 WBC RBC Hgb Hct Seg Neuts % (Manual) Lymphocytes % (Manual) Seg Neutrophils # Man Lymphocytes # (Manual) Monocytes # (Manual) POC ABG pH 7.290 L POC ABG pCO2 67.4 H 57.5 H POC ABG pO2 67 L 62 L Sodium Chloride Carbon Dioxide BUN Creatinine Glucose POC Glucose Calcium AST Total Creatine Kinase 523 H CK-MB (CK-2) 6.6 H Albumin 11/22/16 11/22/16 11/22/16 05:08 05:08 05:18 WBC 13.8 H RBC 5.28 H Hgb 15.4 H Hct 48.0 H Seg Neuts % (Manual) 75.0 H Lymphocytes % (Manual) 4.0 L Seg Neutrophils # Man 10.4 H Lymphocytes # (Manual) 0.6 L Monocytes # (Manual) 1.0 H POC ABG pH POC ABG pCO2 55.7 H POC ABG pO2 65 L Sodium Chloride 96.9 L Carbon Dioxide BUN 19 H Creatinine 0.5 L Glucose 151 H POC Glucose Calcium 8.2 L AST Total Creatine Kinase CK-MB (CK-2) Albumin 11/23/16 11/23/16 11/23/16 05:17 17:41 23:54 WBC RBC Hgb Hct Seg Neuts % (Manual) Lymphocytes % (Manual) Seg Neutrophils # Man Lymphocytes # (Manual) Monocytes # (Manual) POC ABG pH 7.475 H POC ABG pCO2 49.9 H POC ABG pO2 72 L Sodium 136 L Chloride 94.0 L Carbon Dioxide BUN 27 H Creatinine 0.5 L Glucose 122 H POC Glucose 132 H Calcium AST 92 H Total Creatine Kinase CK-MB (CK-2) Albumin 3.4 L 11/24/16 11/24/16 11/27/16 05:27 10:32 07:49 WBC RBC Hgb Hct Seg Neuts % (Manual) Lymphocytes % (Manual) Seg Neutrophils # Man Lymphocytes # (Manual) Monocytes # (Manual) POC ABG pH 7.313 L POC ABG pCO2 59.1 H 70.0 H POC ABG pO2 Sodium Chloride 96.2 L Carbon Dioxide 35 H BUN 24 H Creatinine 0.4 L Glucose 116 H POC Glucose Calcium AST Total Creatine Kinase CK-MB (CK-2) Albumin 11/27/16 11/28/16 11/28/16 17:04 05:42 05:42 WBC 14.7 H RBC 5.78 H Hgb 16.7 H Hct 52.9 H Seg Neuts % (Manual) Lymphocytes % (Manual) Seg Neutrophils # Man Lymphocytes # (Manual) Monocytes # (Manual) POC ABG pH POC ABG pCO2 58.4 H POC ABG pO2 Sodium Chloride 95.1 L Carbon Dioxide 35 H BUN 24 H Creatinine 0.4 L Glucose 139 H POC Glucose Calcium AST Total Creatine Kinase CK-MB (CK-2) Albumin Chest x-ray: report reviewed, image reviewed
[2016-11-28 16:34] VITALS: BP 120/70
[2016-11-28] MEDS ORDERED: PULMICORT IH SCH (20:00)
[2016-11-28] MEDS ORDERED: BROVANA NEBU IH SCH (20:00)
== END 2016-11-28 22:40 | disposition home or self-care (01) | DRG 208 ==
LOC: ED 18:21 → CC1 11-21 01:13 → 3A 11-25 17:29
PROVIDERS: ADMIT Internal Medicine; ATTEND Family Medicine
PROC: 0BH17EZ Insertion of Endotracheal Airway into Trachea, Via Natural or Artificial Opening (ICD-10-PCS; 2016-11-22)
PROC: 5A1945Z Respiratory Ventilation, 24-96 Consecutive Hours (ICD-10-PCS; principal; 2016-11-24)
PROC: 4A033R1 Measurement of Arterial Saturation, Peripheral, Percutaneous Approach (ICD-10-PCS; 2016-11-24)
DX: J96.22 Acute and chronic respiratory failure with hypercapnia (principal); J44.1 Chronic obstructive pulmonary disease with (acute) exacerbation; E66.01 Morbid (severe) obesity due to excess calories; Z68.43 Body mass index [BMI] 50.0-59.9, adult; I10 Essential (primary) hypertension; F32.9 Major depressive disorder, single episode, unspecified; M17.12 Unilateral primary osteoarthritis, left knee; E87.2 Acidosis; F41.9 Anxiety disorder, unspecified; R73.9 Hyperglycemia, unspecified; D72.829 Elevated white blood cell count, unspecified; Z90.710 Acquired absence of both cervix and uterus; Z87.891 Personal history of nicotine dependence; Z71.3 Dietary counseling and surveillance
CPT/HCPCS: 36415; 36600; 71010; 71020; 71275; 74000; 80048; 80053; 82550; 82553; 82803; 82962; 83735; 83880; 84484; 85007; 85025; 85027; 85379; 93005; 93010; 93306; 94002; 94003; 94640; 94660; 94668; 94760; 96365; 96375; 96376; J1650; J1940; J2060; J2250; J2270; J2405; J2704; J2920; J2930; J3010; J3475; Q9967

== ENCOUNTER 2017-04-24 11:00 | Outpatient (CLI) | payer MEDICAID | END 2017-04-24 11:01 | disposition home or self-care (01) | LOC: SLR 11:00 | PROVIDERS: ATTEND Specialist | DX: G47.30 Sleep apnea, unspecified (principal); J44.9 Chronic obstructive pulmonary disease, unspecified; I11.0 Hypertensive heart disease with heart failure; I50.9 Heart failure, unspecified; F32.9 Major depressive disorder, single episode, unspecified; Z87.891 Personal history of nicotine dependence | CPT/HCPCS: G0399 ==

== ENCOUNTER 2017-05-21 11:00 | Outpatient (CLI) | payer MEDICAID | END 2017-05-21 11:01 | disposition home or self-care (01) | LOC: SLR 11:00 | PROVIDERS: ATTEND Specialist | DX: G47.33 Obstructive sleep apnea (adult) (pediatric) (principal) | CPT/HCPCS: 95811 ==

== ENCOUNTER 2018-09-30 11:00 | Outpatient (CLI) | payer MEDICAID | END 2018-09-30 11:01 | disposition home or self-care (01) | LOC: SLR 11:00 | PROVIDERS: ATTEND Otolaryngology | DX: G47.33 Obstructive sleep apnea (adult) (pediatric) (principal); R40.0 Somnolence; R06.83 Snoring; E66.01 Morbid (severe) obesity due to excess calories; J44.9 Chronic obstructive pulmonary disease, unspecified; I11.0 Hypertensive heart disease with heart failure; I50.9 Heart failure, unspecified; Z87.891 Personal history of nicotine dependence; Z90.710 Acquired absence of both cervix and uterus | CPT/HCPCS: 95810 ==

== ENCOUNTER 2018-10-23 11:00 | Outpatient (CLI) | payer MEDICAID | END 2018-10-23 11:01 | disposition home or self-care (01) | LOC: SLR 11:00 | PROVIDERS: ATTEND Otolaryngology | DX: G47.33 Obstructive sleep apnea (adult) (pediatric) (principal); I11.0 Hypertensive heart disease with heart failure; I50.9 Heart failure, unspecified; J44.9 Chronic obstructive pulmonary disease, unspecified; Z87.891 Personal history of nicotine dependence; E66.01 Morbid (severe) obesity due to excess calories | CPT/HCPCS: 95811 ==

== ENCOUNTER 2019-02-04 07:23 | Day surgery (SDC) | payer MEDICAID ==
[~2019-02-04 07:23] MED LIST: NACL 0.9% 1000 ML 1,000 ML IV SCH
[2019-02-04] MEDS ORDERED: PROVENTIL IH PRN (11:44)
--- NOTE | 2019-02-04 14:35 | Anesthesia Consultation ---
Anesthesia Consult and Med Hx Date of service: 02/04/19 - Airway ROM Head & Neck: Adequate Mental/Hyoid Distance: Adequate Mallampati Class: Class III Intubation Access Assessment: Possibly Difficult - Pulmonary Exam CTA: No (diffuse expiratory wheezing; diminished inspiratory breath sounds) - Cardiac Exam Cardiac Exam: RRR - Pre-Operative Health Status ASA Pre-Surgery Classification: ASA3 - Pulmonary Hx Smoking: Yes Hx Asthma: Yes Hx Respiratory Symptoms: Yes (acute worse cough, mild dyspnea, and wheezing) SOB: Yes COPD: Yes (daily inhalers) Home Oxygen Therapy: Yes (O2 added to CPAP at night (noncompliant)) Hx Sleep Apnea: Yes - Cardiovascular System Hx Hypertension: Yes Hx Coronary Artery Disease: No Hx Heart Attack/AMI: No Hx Angina: No - Central Nervous System CVA: No Hx Psychiatric Problems: Yes - Endocrine Hx Renal Disease: No Hx Liver Disease: No Hx Insulin Dependent Diabetes: No Hx Non-Insulin Dependent Diabetes: No Hx Thyroid Disease: No - Other Systems Hx Obesity: Yes (BMI 54) - Additional Comments Anesthesia Medical History Comments: PMH chornic bronchitis presenting for elective outpatient EGD. In pre-op, patient reported new onset cough, dyspnea, and wheezing which is worse than baseline. She has not used inhalers today. Initial vitals significant for SpO2 high 80s which improved with 2-3L NC. O2 was eventually weaned off with SpO2 low 90s. Given concern for possible acute exacerbation of chronic lung disease vs new pathology, hospitalist was consulted for further evaluation. Per hospitalist recommendations, stat ABG was ordered. Ms. Santacruz was informed of these findings and of concerns mentioned above. I explained that I felt she should undergo further evaluation, including possible inpatient admission. I also explained that the scheduled procedure would not be performed until her respiratory status was optimized. Ms. Santacruz verbalized understanding but did state that she was not prepared to stay overnight and may need to leave.
== END 2019-02-04 07:24 | disposition home or self-care (01) ==
LOC: GIO 07:23
PROVIDERS: ATTEND Specialist
DX: K30 Functional dyspepsia (principal); G47.33 Obstructive sleep apnea (adult) (pediatric); I11.0 Hypertensive heart disease with heart failure; I50.9 Heart failure, unspecified; J43.9 Emphysema, unspecified; M79.7 Fibromyalgia; F32.9 Major depressive disorder, single episode, unspecified; Z53.8 Procedure and treatment not carried out for other reasons; Z79.899 Other long term (current) drug therapy; Z87.891 Personal history of nicotine dependence; Z86.59 Personal history of other mental and behavioral disorders; E66.01 Morbid (severe) obesity due to excess calories; Z68.43 Body mass index [BMI] 50.0-59.9, adult; Z90.710 Acquired absence of both cervix and uterus; Z98.890 Other specified postprocedural states; Z80.1 Family history of malignant neoplasm of trachea, bronchus and lung; Z83.3 Family history of diabetes mellitus; Z82.49 Family history of ischemic heart disease and other diseases of the circulatory system
CPT/HCPCS: 36600; 82803

== ENCOUNTER 2019-06-22 18:28 | Emergency (ER) | payer MEDICAID ==
--- NOTE | 2019-06-22 18:39 | Event Note ---
ED Screening Note ED Screening Note: AMS difficulty with word finding unsure of last known well code stroke initiated no one is with patient This initial assessment/diagnostic orders/clinical plan/treatment(s) is/are subject to change based on patients health status, clinical progression and re- assessment by fellow clinical providers in the ED. Further treatment and workup at subsequent clinical providers discretion. Patient/guardian urged not to elope from the ED as their condition may be serious if not clinically assessed and man aged.
--- NOTE | 2019-06-22 19:02 | Consultation ---
History of Present Illness Consult date: 06/22/19 History of present illness: [facility] Date of Service:06/22/2019 18:43:52 Impression: RO Acute Ischemic Stroke Comments: Lt MCA stroke Metrics: Last Known Well: Unknown [facility] Notification Time: 06/22/2019 18:42:56 Arrival Time: 06/22/2019 18:37:00 Stamp Time: 06/22/2019 18:43:52 Time First Login Attempt: 06/22/2019 18:45:49 Video Start Time: 06/22/2019 18:45:49 Symptoms: AMS NIHSS Start Assessment Time: 06/22/2019 18:50:00 Patient is not a candidate for tPA. Patient was not deemed candidate for tPA thrombolytics because of Last Well Known Above 4.5 Hours. Video End Time: 06/22/2019 18:57:05 CT head was reviewed. Subacute Lt MCA stroke Advanced imaging was not obtained as the stroke is showing on the CT. ER physician notified of the decision on thrombolytics management. Our recommendations are outlined below. Recommendations: Start Antiplatelet Therapy Daily Recommended Scan: MRI Head Carotid Dopplers Echocardiogram - Transthoracic Echocardiogram Lipid Panel to Be Obtained, if Not Done in the Last Three Months Therapies: Physical Therapy, Occupational Therapy, Speech Therapy Assessment When Applicable Dysphaghia Screen: Swallow Evaluation, Bedside DVT prophylaxis: Choice of Primary Team Disposition: Follow up with Teleneurology Follow up Sign Out: Discussed with Emergency Department Provider History of Present Illness: Patient is a 54 years old Female. Patient was brought by private transportation with symptoms of AMS 54 YOF with unknown PMH presented with AMS. she is aphasic and cant not describe why she is in the hospital. she gets frustrated. she was triaged and no one was with her. she states that she is feeling confused. no focal weakness. CT head was reviewed. Subacute Lt MCA stroke Examination: 1A: Level of Consciousness - Alert; keenly responsive+ 0 1B: Ask Month and Age - Aphasic+ 2 1C: Blink Eyes & Squeeze Hands - Performs 0 Tasks+ 2 2: Test Horizontal Extraocular Movements - Normal+ 0 3: Test Visual Shore - No Visual Loss+ 0 4: Test Facial Palsy (Use Grimace if Obtunded) - Normal symmetry+ 0 5A: Test Left Arm Motor Drift - No Drift for 10 Seconds+ 0 5B: Test Right Arm Motor Drift - No Drift for 10 Seconds+ 0 6A: Test Left Leg Motor Drift - No Drift for 5 Seconds+ 0 6B: Test Right Leg Motor Drift - No Drift for 5 Seconds+ 0 7: Test Limb Ataxia (FNF/Heel-Mabry) - No Ataxia+ 0 8: Test Sensation - Normal; No sensory loss+ 0 9: Test Language/Aphasia - Severe Aphasia: Fragmentary Expression, Inference Needed, Cannot Identify Materials+ 2 10: Test Dysarthria - Mild-Moderate Dysarthria: Slurring but can be understood+ 1 11: Test Extinction/Inattention - No abnormality+ 0 NIHSS Score:7 Patient was informed the Neurology Consult would happen via TeleHealth consult by way of interactive audio and video telecommunications and consented to receiving care in this manner. Due to the immediate potential for life-threatening deterioration due to underlying acute neurologic illness, I spent 35 minutes providing critical care. This time includes time for face to face visit via telemedicine, review of medical records, imaging studies and discussion of findings with providers, the patient and/or family. Dr Irina Capellan [facility] Medications and Allergies Allergies Allergy/AdvReac Type Severity Reaction Status Date / Time No Known Allergies Allergy Verified 01/31/19 08:19 Home Medications Medication Instructions Recorded Confirmed Last Taken Type Albuterol Sulfate [Ventolin HFA] 2 puff IH Q4H PRN #1 hfa.aer.ad 11/28/16 11/30/16 Unknown Rx Arformoterol Nebu [Brovana Nebu] 15 mcg IH Q12HRT ml 11/28/16 11/30/16 Unknown Rx Budesonide [Pulmicort Respules] 0.5 mg IH Q12HRT nebu 11/28/16 11/30/16 1 Day Ago Rx ~11/29/16 Gabapentin 100 mg PO Q8HR #90 capsule 11/28/16 11/30/16 11/30/16 Rx HYDROcodone/APAP 5-325 [[place] 1 each PO Q6HR PRN #30 tablet 11/28/16 11/30/16 Unknown Rx 5-325 mg TAB] LORazepam [Ativan] 1 mg PO QHS #30 tab 11/28/16 11/30/16 1 Day Ago Rx ~11/29/16 Azithromycin [Zithromax] 250 mg PO QDAY #6 tablet 12/02/16 Unknown Rx Furosemide [Lasix TAB] 40 mg PO QDAY #30 tablet 12/02/16 Unknown Rx guaiFENesin DM [Robitussin Dm] 10 ml PO Q6HR #1 bottle 12/02/16 Unknown Rx Results - Laboratory Findings Abnormal Lab Findings: Abnormal Labs 06/22/19 18:49 POC Glucose 118 H
--- NOTE | 2019-06-22 19:08 | Cat Scan Report ---
CT head/brain wo con INDICATION: Stroke symptoms. TECHNIQUE: Routine CT head without contrast. All CT scans at this location are performed using CT dos e reduction for ALARA by means of automated exposure control. COMPARISON: None. FINDINGS: BRAIN / INTRACRANIAL CONTENTS: There is an area of hypoattenuation in the left posterior temporal lob e with internal area of isoattenuation. The findings more likely suggest a parenchymal mass with jose cent edema rather than acute infarct but this is not definite. There is no hydrocephalus, hemorrhage, or adverse mass effect. ORBITS: No significant abnormality of visualized orbits. SINUSES / MASTOIDS: No significant abnormality of visualized sinuses and mastoid air cells. ADDITIONAL FINDINGS: None. IMPRESSION: 1. Findings suggesting probable mass along the left posterior temporal lobe with adjacent brain edema . Infarct is considered to be less likely. Further evaluation with MRI of the brain without and with IV contrast recommended. Findings discussed with Garima Graves at 6:01 PM Central time on 06/22/2019. Signer Name: Jevon Mccarty MD Signed: 06/22/2019 7:04 PM Workstation Name: [id number]
[2019-06-22 19:12] LABS: Basophils # (Auto) 0.1 K/mm3 (0.0-0.1); Basophils % (Auto) 0.9 % (0.0-1.8); Eosinophils # (Auto) 0.2 K/mm3 (0.0-0.4); Eosinophils % (Auto) 2.4 % (0.0-4.3); Hematocrit 40.8 % (30.3-42.9); Hemoglobin 13.6 gm/dl (10.1-14.3); Lymphocytes % (Auto) 25.3 % (13.4-35.0); Mean Corpuscular HGB Conc 33 % (30-34); Mean Corpuscular Volume 92 fl (79-97); Monocytes # (Auto) 0.7 K/mm3 (0.0-0.8); Monocytes % (Auto) 8.3 % (0.0-7.3); Platelet Count 250 K/mm3 (140-440); Red Blood Count 4.44 M/mm3 (3.65-5.03); Red Cell Distribution Width 13.8 % (13.2-15.2)
[2019-06-22] MEDS ORDERED: ASPIRIN 81 MG TAB CHEW PO ONE (19:21)
[2019-06-22] MEDS ORDERED: dexAMETHasone 20 MG/5 ML VIAL IV ONE (19:21)
[2019-06-22 19:24] LABS: INR 1.02 (0.87-1.13)
[2019-06-22 19:27] LABS: Creatine Kinase MB 1.7 ng/mL (0.0-4.0)
[2019-06-22 19:29] LABS: Alanine Aminotransferase 14 units/L (7-56); Albumin 4.3 g/dL (3.9-5); BUN/Creatinine Ratio 32; Blood Urea Nitrogen 29 mg/dL (7-17); Calcium 9.1 mg/dL (8.4-10.2); Hemolysis Index 0
[2019-06-22 19:32] LABS: Thrombin Time 15.6 Sec. (15.1-19.6)
[2019-06-22 19:34] LABS: Partial Thromboplastin Time 25.5 Sec. (24.2-36.6)
--- NOTE | 2019-06-22 20:01 | Emergency Department Report ---
ED Altered Mental Status HPI - General Chief Complaint: Altered Mental Status Stated Complaint: AMS Time Seen by Provider: 06/22/19 18:36 Source: patient Mode of arrival: Ambulatory Limitations: Other - History of Present Illness Initial Comments: Family at bedside reports patient exhibited confusion and difficulty with speaking sometime earlier today around noon. Reports patient was behaving normally and speaking normally last night. Denies prior. Reports patient has hx of chronic left hip pain. Denies drugs/alcohol. Denies trauma. MD Complaint: altered mental status (patient very aphasic) -: hour(s) Severity: moderate Consistency of Symptoms: constant Associated Symptoms: denies: chest pain, cough, diaphoresis, fever/chills, headaches, loss of appetite, malaise, nausea/vomiting, rash, seizure, shortness of breath, syncope, weakness, foul smelling urine, difficulty walking, diarrhea, incontinence - Related Data Previous Rx's Medication Instructions Recorded Last Taken Type RX: Albuterol Sulfate [Ventolin 2 puff IH Q4H PRN #1 hfa.aer.ad 11/28/16 Unknown Rx HFA] RX: Arformoterol Nebu [Brovana 15 mcg IH Q12HRT ml 11/28/16 Unknown Rx Nebu] RX: Budesonide [Pulmicort Respules] 0.5 mg IH Q12HRT nebu 11/28/16 1 Day Ago Rx ~11/29/16 RX: Gabapentin 100 mg PO Q8HR #90 capsule 11/28/16 11/30/16 Rx RX: HYDROcodone/APAP 5-325 [[place] 1 each PO Q6HR PRN #30 tablet 11/28/16 Unknown Rx 5-325 mg TAB] RX: LORazepam [Ativan] 1 mg PO QHS #30 tab 11/28/16 1 Day Ago Rx ~11/29/16 Azithromycin [Zithromax] 250 mg PO QDAY #6 tablet 12/02/16 Unknown Rx RX: Furosemide [Lasix TAB] 40 mg PO QDAY #30 tablet 12/02/16 Unknown Rx guaiFENesin DM [Robitussin Dm] 10 ml PO Q6HR #1 bottle 12/02/16 Unknown Rx Allergies Allergy/AdvReac Type Severity Reaction Status Date / Time No Known Allergies Allergy Verified 01/31/19 08:19 ED Review of Systems ROS: Stated complaint: AMS Other details as noted in HPI Comment: Unobtainable due to pts medical conditions (due to patients medical condition unable to speak coherently) ED Past Medical Hx - Past Medical History Previous Medical History?: Yes Hx Hypertension: Yes Hx Heart Attack/AMI: No Hx Congestive Heart Failure: Yes Hx Diabetes: No Hx Pulmonary Embolism: No Hx GERD: No Hx Liver Disease: No Hx Renal Disease: No Hx Arthritis: No Hx Headaches / Migraines: No Hx Kidney Stones: No Hx Psychiatric Treatment: Yes (MAJOR DEPRESSIVE DISORDER) Hx Asthma: Yes Hx COPD: Yes (daily inhalers) Hx Tuberculosis: No Hx Dementia: No Hx HIV: No Additional medical history: MORBID OBESITY - Surgical History Past Surgical History?: Yes Hx Coronary Stent: No Hx Open Heart Surgery: No Hx Cholecystectomy: No Hx Appendectomy: No Hx Breast Surgery: No Additional Surgical History: HYSTERECTOMY - Social History Smoking Status: Current Every Day Smoker Substance Use Type: Alcohol - Medications Home Medications: Home Medications Medication Instructions Recorded Confirmed Last Taken Type RX: Albuterol Sulfate [Ventolin 2 puff IH Q4H PRN #1 hfa.aer.ad 11/28/16 11/30/16 Unknown Rx HFA] RX: Arformoterol Nebu [Brovana 15 mcg IH Q12HRT ml 11/28/16 11/30/16 Unknown Rx Nebu] RX: Budesonide [Pulmicort Respules] 0.5 mg IH Q12HRT nebu 11/28/16 11/30/16 1 Day Ago Rx ~11/29/16 RX: Gabapentin 100 mg PO Q8HR #90 capsule 11/28/16 11/30/16 11/30/16 Rx RX: HYDROcodone/APAP 5-325 [[place] 1 each PO Q6HR PRN #30 tablet 11/28/16 11/30/16 Unknown Rx 5-325 mg TAB] RX: LORazepam [Ativan] 1 mg PO QHS #30 tab 11/28/16 11/30/16 1 Day Ago Rx ~11/29/16 Azithromycin [Zithromax] 250 mg PO QDAY #6 tablet 12/02/16 Unknown Rx RX: Furosemide [Lasix TAB] 40 mg PO QDAY #30 tablet 12/02/16 Unknown Rx guaiFENesin DM [Robitussin Dm] 10 ml PO Q6HR #1 bottle 12/02/16 Unknown Rx ED Physical Exam - General Limitations: Other - Other Other exam information: GENERAL: Patient in acute distress HEAD: Normocephalic, atraumatic EYES: PERRLA, EOM intact, no scleral icterus, no conjunctival hemorrhage, visual jack and acuity wnl NOSE: No tenderness, discharge, sinus tenderness MOUTH: No erythema, bleeding, exudate HEART: Regular rate and rhythm, no murmur, S1-S2 are auscultated, no edema, pulses are symmetric LUNGS: No respiratory distress. Bilateral breath sounds, No tachypnea, No retractions, No wheezing, rales, rhonchi ABDOMEN: Normal bowel sounds, abdomen soft, no tenderness, no rebound, no guarding, no distention, no masses, no CVA tenderness MUSCULOSKELETAL: Normal joint range of motion, no redness, no swelling, no tenderness NEUROLOGIC: Alert, Cranial nerves intact, normal sensation, weakness left LE, no cerebellar deficit SKIN: Skin is warm and dry, no wounds, no rashes - Assessment Assessment Interval: Baseline - Level of Consciousness 1a. Level of Consciousness: alert/keenly responsive - LOC Questions 1b. LOC Questions: answers 1 question correctly - LOC Command 1c. LOC Commands: performs tasks correctly - Best Gaze 2. Best Gaze: normal - Visual 3. Visual: no visual loss - Facial Palsy 4. Facial Palsy: normal symmetrical movement - Motor Arm 5a. Motor Arm Left: no drift 5b. Motor Arm Right: no drift - Motor Leg 6a. Motor Leg Left: some gravity effort 6b. Motor Leg Right: no drift - Limb Ataxia 7. Limb Ataxia: present 1 limb - Sensory 8. Sensory: normal - Best Language 9. Best Language: severe aphasia - Dysarthria 10. Dysarthria: mild/moderate dysarthria - Extinction and Inattention 11. Extinction/Inattention: no abnormality - Scoring Total Score: 7 Stroke Severity: Moderate Stroke ED Course Vital Signs 06/22/19 06/22/19 06/22/19 19:05 19:09 20:07 Temperature 98.4 F Pulse Rate 84 77 Respiratory 16 16 18 Rate Blood Pressure 116/61 115/69 [Left] O2 Sat by Pulse 96 96 Oximetry - Lab Data Result diagrams: 06/22/19 19:02 06/22/19 19:02 Lab Results 10/27/19 10/27/19 10/27/19 Range/Units 18:49 19:02 19:02 WBC 8.0 (4.5-11.0) K/mm3 RBC 4.44 (3.65-5.03) M/mm3 Hgb 13.6 (10.1-14.3) gm/dl Hct 40.8 (30.3-42.9) % MCV 92 (79-97) fl MCH 31 (28-32) pg MCHC 33 (30-34) % RDW 13.8 (13.2-15.2) % Plt Count 250 (140-440) K/mm3 Lymph % (Auto) 25.3 (13.4-35.0) % [place] % (Auto) 8.3 H (0.0-7.3) % Eos % (Auto) 2.4 (0.0-4.3) % Baso % (Auto) 0.9 (0.0-1.8) % Lymph # 2.0 (1.2-5.4) K/mm3 [place] # 0.7 (0.0-0.8) K/mm3 Eos # 0.2 (0.0-0.4) K/mm3 Baso # 0.1 (0.0-0.1) K/mm3 Seg Neutrophils % 63.1 (40.0-70.0) % Seg Neutrophils # 5.0 (1.8-7.7) K/mm3 PT 13.3 (12.2-14.9) Sec. INR 1.02 (0.87-1.13) APTT 25.5 (24.2-36.6) Sec. Thrombin Time 15.6 (15.1-19.6) Sec. Sodium (137-145) mmol/L Potassium (3.6-5.0) mmol/L Chloride (98-107) mmol/L Carbon Dioxide (22-30) mmol/L Anion Gap mmol/L BUN (7-17) mg/dL Creatinine (0.7-1.2) mg/dL Estimated GFR ml/min BUN/Creatinine Ratio % Glucose (65-100) mg/dL POC Glucose 118 H (70-105) Calcium (8.4-10.2) mg/dL Total Bilirubin (0.1-1.2) mg/dL AST (5-40) units/L ALT (7-56) units/L Alkaline Phosphatase (35-129) units/L Total Creatine Kinase (30-135) units/L CK-MB (CK-2) (0.0-4.0) ng/mL CK-MB (CK-2) Rel Index (0-4) Troponin T (0.00-0.029) ng/mL Total Protein (6.3-8.2) g/dL Albumin (3.9-5) g/dL Albumin/Globulin Ratio % Salicylates (2.8-20.0) mg/dL Acetaminophen (10.0-30.0) ug/mL Plasma/Serum Alcohol (0-0.07) % 06/22/19 06/22/19 06/22/19 Range/Units 19:02 19:02 19:02 WBC (4.5-11.0) K/mm3 RBC (3.65-5.03) M/mm3 Hgb (10.1-14.3) gm/dl Hct (30.3-42.9) % MCV (79-97) fl MCH (28-32) pg MCHC (30-34) % RDW (13.2-15.2) % Plt Count (140-440) K/mm3 Lymph % (Auto) (13.4-35.0) % [place] % (Auto) (0.0-7.3) % Eos % (Auto) (0.0-4.3) % Baso % (Auto) (0.0-1.8) % Lymph # (1.2-5.4) K/mm3 [place] # (0.0-0.8) K/mm3 Eos # (0.0-0.4) K/mm3 Baso # (0.0-0.1) K/mm3 Seg Neutrophils % (40.0-70.0) % Seg Neutrophils # (1.8-7.7) K/mm3 PT (12.2-14.9) Sec. INR (0.87-1.13) APTT (24.2-36.6) Sec. Thrombin Time (15.1-19.6) Sec. Sodium 142 (137-145) mmol/L Potassium 3.9 (3.6-5.0) mmol/L Chloride 102.0 (98-107) mmol/L Carbon Dioxide 26 (22-30) mmol/L Anion Gap 18 mmol/L BUN 29 H (7-17) mg/dL Creatinine 0.9 (0.7-1.2) mg/dL Estimated GFR > 60 ml/min BUN/Creatinine Ratio 32 % Glucose 104 H (65-100) mg/dL POC Glucose (70-105) Calcium 9.1 (8.4-10.2) mg/dL Total Bilirubin 0.20 (0.1-1.2) mg/dL AST 15 (5-40) units/L ALT 14 (7-56) units/L Alkaline Phosphatase 110 (35-129) units/L Total Creatine Kinase 109 (30-135) units/L CK-MB (CK-2) 1.7 (0.0-4.0) ng/mL CK-MB (CK-2) Rel Index 1.5 (0-4) Troponin T < 0.010 (0.00-0.029) ng/mL Total Protein 7.4 (6.3-8.2) g/dL Albumin 4.3 (3.9-5) g/dL Albumin/Globulin Ratio 1.4 % Salicylates < 0.3 L (2.8-20.0) mg/dL Acetaminophen (10.0-30.0) ug/mL Plasma/Serum Alcohol < 0.01 (0-0.07) % 06/22/19 Range/Units 19:02 WBC (4.5-11.0) K/mm3 RBC (3.65-5.03) M/mm3 Hgb (10.1-14.3) gm/dl Hct (30.3-42.9) % MCV (79-97) fl MCH (28-32) pg MCHC (30-34) % RDW (13.2-15.2) % Plt Count (140-440) K/mm3 Lymph % (Auto) (13.4-35.0) % [place] % (Auto) (0.0-7.3) % Eos % (Auto) (0.0-4.3) % Baso % (Auto) (0.0-1.8) % Lymph # (1.2-5.4) K/mm3 [place] # (0.0-0.8) K/mm3 Eos # (0.0-0.4) K/mm3 Baso # (0.0-0.1) K/mm3 Seg Neutrophils % (40.0-70.0) % Seg Neutrophils # (1.8-7.7) K/mm3 PT (12.2-14.9) Sec. INR (0.87-1.13) APTT (24.2-36.6) Sec. Thrombin Time (15.1-19.6) Sec. Sodium (137-145) mmol/L Potassium (3.6-5.0) mmol/L Chloride (98-107) mmol/L Carbon Dioxide (22-30) mmol/L Anion Gap mmol/L BUN (7-17) mg/dL Creatinine (0.7-1.2) mg/dL Estimated GFR ml/min BUN/Creatinine Ratio % Glucose (65-100) mg/dL POC Glucose (70-105) Calcium (8.4-10.2) mg/dL Total Bilirubin (0.1-1.2) mg/dL AST (5-40) units/L ALT (7-56) units/L Alkaline Phosphatase (35-129) units/L Total Creatine Kinase (30-135) units/L CK-MB (CK-2) (0.0-4.0) ng/mL CK-MB (CK-2) Rel Index (0-4) Troponin T (0.00-0.029) ng/mL Total Protein (6.3-8.2) g/dL Albumin (3.9-5) g/dL Albumin/Globulin Ratio % Salicylates (2.8-20.0) mg/dL Acetaminophen < 5.0 L (10.0-30.0) ug/mL Plasma/Serum Alcohol (0-0.07) % Laboratory Results - last 24 hr 06/22/19 06/22/19 06/22/19 18:49 19:02 19:02 WBC 8.0 RBC 4.44 Hgb 13.6 Hct 40.8 MCV 92 MCH 31 MCHC 33 RDW 13.8 Plt Count 250 Lymph % (Auto) 25.3 [place] % (Auto) 8.3 H Eos % (Auto) 2.4 Baso % (Auto) 0.9 Lymph # 2.0 [place] # 0.7 Eos # 0.2 Baso # 0.1 Seg Neutrophils % 63.1 Seg Neutrophils # 5.0 PT 13.3 INR 1.02 APTT 25.5 Thrombin Time 15.6 Sodium Potassium Chloride Carbon Dioxide Anion Gap BUN Creatinine Estimated GFR BUN/Creatinine Ratio Glucose POC Glucose 118 H Calcium Total Bilirubin AST ALT Alkaline Phosphatase Total Creatine Kinase CK-MB (CK-2) CK-MB (CK-2) Rel Index Troponin T Total Protein Albumin Albumin/Globulin Ratio Salicylates Acetaminophen Plasma/Serum Alcohol 06/22/19 06/22/19 06/22/19 19:02 19:02 19:02 WBC RBC Hgb Hct MCV MCH MCHC RDW Plt Count Lymph % (Auto) [place] % (Auto) Eos % (Auto) Baso % (Auto) Lymph # [place] # Eos # Baso # Seg Neutrophils % Seg Neutrophils # PT INR APTT Thrombin Time Sodium 142 Potassium 3.9 Chloride 102.0 Carbon Dioxide 26 Anion Gap 18 BUN 29 H Creatinine 0.9 Estimated GFR > 60 BUN/Creatinine Ratio 32 Glucose 104 H POC Glucose Calcium 9.1 Total Bilirubin 0.20 AST 15 ALT 14 Alkaline Phosphatase 110 Total Creatine Kinase 109 CK-MB (CK-2) 1.7 CK-MB (CK-2) Rel Index 1.5 Troponin T < 0.010 Total Protein 7.4 Albumin 4.3 Albumin/Globulin Ratio 1.4 Salicylates < 0.3 L Acetaminophen Plasma/Serum Alcohol < 0.01 06/22/19 19:02 WBC RBC Hgb Hct MCV MCH MCHC RDW Plt Count Lymph % (Auto) [place] % (Auto) Eos % (Auto) Baso % (Auto) Lymph # [place] # Eos # Baso # Seg Neutrophils % Seg Neutrophils # PT INR APTT Thrombin Time Sodium Potassium Chloride Carbon Dioxide Anion Gap BUN Creatinine Estimated GFR BUN/Creatinine Ratio Glucose POC Glucose Calcium Total Bilirubin AST ALT Alkaline Phosphatase Total Creatine Kinase CK-MB (CK-2) CK-MB (CK-2) Rel Index Troponin T Total Protein Albumin Albumin/Globulin Ratio Salicylates Acetaminophen < 5.0 L Plasma/Serum Alcohol When compared to previous EKG there are: no significant change - Radiology Data Radiology results: report reviewed, image reviewed - Medical Decision Making Neurology call back. Recommends no TPA. Reports CT already shows left sided CVA. Admit for MRI evaluation. At [address] Mcfarland neuro critical care at [place] updated and accepts transfer for further evaluation. Critical Care Time: Yes Critical care time in (mins) excluding proc time.: 42 Critical care attestation.: If time is entered above; I have spent that time in minutes in the direct care of this critically ill patient, excluding procedure time. 42 ED Disposition Clinical Impression: Brain mass CVA (cerebral vascular accident) Qualifiers: CVA mechanism: unspecified Qualified Code(s): I63.9 - Cerebral infarction, unspecified Disposition: DC/TX-70 ANOTHER TYPE HLTHCARE Is pt being admited?: No Condition: Stable Time of Disposition: 20:00
[2019-06-22 20:09] VITALS: BP 115/69
[2019-06-22] MEDS ORDERED: MORPHINE 2 MG/1 ML INJ IV ONE (20:14)
--- NOTE | 2019-06-22 20:19 | XRay Report ---
CHEST 1 VIEW 7:34 PM INDICATION / CLINICAL INFORMATION: Altered mental status. COMPARISON: 11/30/2016. FINDINGS: SUPPORT DEVICES: None. HEART / MEDIASTINUM: There is mild cardiomegaly and prominence of the central pulmonary vessels. LUNGS / PLEURA: Interstitial lung markings are slightly increased. No pneumothorax. ADDITIONAL FINDINGS: No significant additional findings. IMPRESSION: Probable very mild congestive heart failure. Signer Name: Ranjit Campoverde MD Signed: 06/22/2019 8:15 PM Workstation Name: [id number]
== END 2019-06-22 21:15 | disposition other institution (70) ==
LOC: ED 18:28
DX: I63.9 Cerebral infarction, unspecified (principal); G93.89 Other specified disorders of brain; I11.0 Hypertensive heart disease with heart failure; I50.9 Heart failure, unspecified; J45.909 Unspecified asthma, uncomplicated; E66.01 Morbid (severe) obesity due to excess calories; F17.200 Nicotine dependence, unspecified, uncomplicated; Z68.42 Body mass index [BMI] 45.0-49.9, adult; Z90.710 Acquired absence of both cervix and uterus; Z79.899 Other long term (current) drug therapy
CPT/HCPCS: 36415; 70450; 71045; 80053; 82550; 82553; 82962; 84484; 85025; 85610; 85670; 85730; 93005; 93010; 96374; 96375; 99291; J1100; J2270; 80320; G0480